=== PATIENT | female | born 1960 | race Caucasian/White ===

== ENCOUNTER 2021-06-06 12:28 | Inpatient (IN) | payer BC, OTHER ==
[~2021-06-06] VITALS: Ht 167.6 cm; Wt 57.6 kg
[2021-06-06 13:36] LABS: CLARITY URINE CLOUDY (CLEAR); COLOR URINE YELLOW (YELLOW); KETONES URINE NEGATIVE (NEGATIVE); LEUKOCYTE ESTERASE URINE NEGATIVE (NEGATIVE); NITRITE URINE NEGATIVE (NEGATIVE); OCCULT BLOOD URINE TRACE (NEGATIVE); PROTEIN URINE NEGATIVE (NEGATIVE); UROBILINOGEN URINE 0.2 E.U./dL (0.2-1.0)
[2021-06-06 14:03] LABS: CHLORIDE 102 mEq/L (98-107)
[2021-06-06 14:10] LABS: BASOPHILS % 0.6 % (0.0-2.0); EOSINOPHILS % 0.9 % (0.0-5.0); HEMATOCRIT. 29.3 % (36.0-48.0); HEMOGLOBIN. 10.2 g/dL (12.0-16.0); LYMPHOCYTES % 14.7 % (20.0-50.0); MEAN CORPUSCULAR HEMOGLOBIN 30.8 pg (28.0-32.0); MEAN CORPUSCULAR VOLUME 88.5 fL (81.0-99.0); MONOCYTES % 5.8 % (2.0-8.0); RED BLOOD CELL COUNT 3.32 mill/uL (4.2-5.4); RED CELL DISTRIBUTION WIDTH 12.9 % (11.6-14.6)
[2021-06-06 14:11] LABS: INR 1.4; PARTIAL THROMBOPLASTIN TIME 30.4 sec (23.4-31.0); PROTHROMBIN TIME 14.6 sec (9.6-11.0)
[2021-06-06 14:44] LABS: MEAN PLATELET VOLUME 8.6 fl (7.4-10.4)
[2021-06-06 21:48] VITALS: BP 128/72
[2021-06-06] MEDS: DEXT 5%/0.45% NACL 1000ML 1,000 ML IV SCH (22:57)
[2021-06-06] MEDS: MORPHINE SULFATE 2 MG/ML CPJ (NOT FOR IM USE) IV PRN (22:58)
[2021-06-06] MEDS: METHYLPREDNISOLONE SOD SUCC 125 MG/2 ML VIAL IV SCH (22:59)
[2021-06-06] MEDS: AMLODIPINE 10MG TABLET PO SCH (22:59)
[2021-06-06] MEDS: LANSOPRAZOLE 30MG DR CAPSULE NG SCH (23:22)
[2021-06-07] VITALS (9 sets, daily range): BP systolic 119–149; BP diastolic 58–80
[2021-06-07] MEDS ORDERED: PRED1TAB MT (01:27)
[2021-06-07] MEDS ORDERED: [UNRECOGNIZED DRUG - CODE] MT (01:27)
[2021-06-07] MEDS ORDERED: LANS30CA52 MT (01:27)
[2021-06-07] MEDS: SIMETHICONE 80MG TABLET CHEW PO PRN ×3 (05:01→23:47)
[2021-06-07] MEDS: METHYLPREDNISOLONE SOD SUCC 125 MG/2 ML VIAL IV SCH ×5 (05:55→23:51)
[2021-06-07] MEDS: LEVOTHYROXINE SODIUM 50MCG TABLET PO SCH (05:55)
[2021-06-07] MEDS: LANSOPRAZOLE 30MG DR CAPSULE NG SCH (05:55)
[2021-06-07 07:03] LABS: HEMATOCRIT. 30.4 % (36.0-48.0); HEMOGLOBIN. 10.5 g/dL (12.0-16.0); MEAN CORPUSCULAR HEMOGLOBIN 31.1 pg (28.0-32.0); MEAN CORPUSCULAR VOLUME 89.7 fL (81.0-99.0); MEAN PLATELET VOLUME 8.5 fl (7.4-10.4); RED BLOOD CELL COUNT 3.39 mill/uL (4.2-5.4); RED CELL DISTRIBUTION WIDTH 13.3 % (11.6-14.6)
[2021-06-07 07:11] LABS: INR 1.3; PARTIAL THROMBOPLASTIN TIME 31.4 sec (23.4-31.0)
[2021-06-07 07:21] LABS: CHLORIDE 102 mEq/L (98-107)
[2021-06-07 07:41] LABS: T4 FREE 0.96 ng/dL (0.76-1.46)
[2021-06-07 08:03] LABS: PLATELET 34 x1000/uL (130-400)
[2021-06-07] MEDS: DEXT 5%/0.45% NACL 1000ML 1,000 ML IV SCH ×2 (08:55→18:52)
[2021-06-07] MEDS ORDERED: DICYCLOMINE HCL 10MG CAPSULE PO SCH (09:00)
[2021-06-07] MEDS: MORPHINE SULFATE 2 MG/ML CPJ (NOT FOR IM USE) IV PRN (12:27)
[2021-06-07] MEDS: DICYCLOMINE HCL 20MG TABLET PO SCH ×2 (14:54→21:24)
[2021-06-07] MEDS: [UNRECOGNIZED DRUG - REMARK] PO SCH ×2 (14:54→21:24)
[2021-06-07] MEDS ORDERED: CYCLOBENZAPRINE 10MG TABLET PO SCH (15:00)
[2021-06-07] MEDS: ALPRAZOLAM 0.5 MG TABLET PO PRN (16:18)
[2021-06-07] MEDS: AMLODIPINE 10MG TABLET PO SCH (17:51)
[2021-06-07] MEDS ORDERED: METHOTREXATE SODIUM 2 . 5MG TABLET PO SCH (18:30)
[2021-06-07 18:47] LABS: PLATELET ESTIMATE MARKEDLY DECREASED
[2021-06-07] MEDS: CYCLOBENZAPRINE 10MG TABLET PO SCH (20:14)
[2021-06-07] MEDS: FOLIC ACID 1MG TABLET PO SCH (20:15)
[2021-06-07] MEDS ORDERED: LACTULOSE 20G/30ML UDC PO NR (21:45)
[2021-06-07] MEDS: METHOTREXATE SODIUM 2 . 5MG TABLET PO SCH (21:53)
[2021-06-07] MEDS ORDERED: ALPRAZOLAM 0.5 MG TABLET PO NR (23:00)
[2021-06-08] VITALS: BP 135/68
[2021-06-08] MEDS ORDERED: LACTULOSE 20G/30ML UDC PO SCH (00:45)
[2021-06-08] MEDS: ALPRAZOLAM 0.5 MG TABLET PO PRN ×2 (00:54→22:45)
[2021-06-08] MEDS: DEXT 5%/0.45% NACL 1000ML 1,000 ML IV SCH ×3 (02:00→22:46)
[2021-06-08] MEDS: MORPHINE SULFATE 2 MG/ML CPJ (NOT FOR IM USE) IV PRN ×2 (02:06→11:26)
[2021-06-08] MEDS: METHOTREXATE SODIUM 2 . 5MG TABLET PO SCH ×2 (06:02→13:20)
[2021-06-08] MEDS: DICYCLOMINE HCL 20MG TABLET PO SCH ×2 (06:02→13:18)
[2021-06-08] MEDS: METHYLPREDNISOLONE SOD SUCC 125 MG/2 ML VIAL IV SCH ×3 (06:02→17:41)
[2021-06-08] MEDS: LANSOPRAZOLE 30MG DR CAPSULE NG SCH (06:04)
[2021-06-08] MEDS: LEVOTHYROXINE SODIUM 50MCG TABLET PO SCH (06:05)
[2021-06-08 06:52] LABS: CHLORIDE 103 mEq/L (98-107)
[2021-06-08 07:00] LABS: CREATINE KINASE 559 IU/L (26-192); HEMATOCRIT. 26.5 % (36.0-48.0); HEMOGLOBIN. 9.2 g/dL (12.0-16.0); MEAN CORPUSCULAR VOLUME 89.5 fL (81.0-99.0); RED BLOOD CELL COUNT 2.96 mill/uL (4.2-5.4); RED CELL DISTRIBUTION WIDTH 13.2 % (11.6-14.6)
[2021-06-08 07:02] LABS: T4 FREE 0.98 ng/dL (0.76-1.46)
[2021-06-08 08:00] VITALS: BP 151/76
[2021-06-08 08:24] LABS: VITAMIN B12 SERUM > 2000.0 pg/mL (211-911)
[2021-06-08] MEDS: FOLIC ACID 1MG TABLET PO SCH (09:00)
[2021-06-08] MEDS: [UNRECOGNIZED DRUG - REMARK] PO SCH ×3 (09:00→17:41)
[2021-06-08 12:00] VITALS: BP 147/73
[2021-06-08] MEDS ORDERED: POLYETHYLENE GLYCOL-ELECTROLYTE 4000ML PO SCH (12:00)
[2021-06-08] MEDS ORDERED: DIATR MEGLU/DIATRIZOATE SOLN 30ML PO SCH (12:30)
[2021-06-08] MEDS ORDERED: IOHEXOL-300 100 ML BOTTLE ONE (13:08)
[2021-06-08 13:12] LABS: PLATELET 20 x1000/uL (130-400)
[2021-06-08 15:06] LABS: PLATELET 47 x1000/uL (130-400); PLATELET ESTIMATE MARKEDLY DECREASED
[2021-06-08] MEDS ORDERED: NA PHOS,M-B/NA PHOS,DI-BA ENEMA 118ML PR PRN (15:30)
[2021-06-08 16:00] VITALS: BP 136/86
[2021-06-08] MEDS: AMLODIPINE 10MG TABLET PO SCH (17:41)
[2021-06-08] MEDS: PILOCARPINE HCL 5MG TABLET PO SCH ×2 (18:53→21:22)
[2021-06-08 20:00] VITALS: BP 138/78
[2021-06-08] MEDS: LACTULOSE 20G/30ML UDC PO SCH (21:21)
[2021-06-08] MEDS: CYCLOBENZAPRINE 10MG TABLET PO SCH (21:22)
[2021-06-09 00:42] VITALS: BP 137/73
[2021-06-09] MEDS: DICYCLOMINE HCL 20MG TABLET PO SCH ×5 (00:56→23:51)
[2021-06-09] MEDS: METHYLPREDNISOLONE SOD SUCC 125 MG/2 ML VIAL IV SCH ×5 (00:56→23:51)
[2021-06-09 04:00] VITALS: BP 147/83
[2021-06-09] MEDS: PILOCARPINE HCL 5MG TABLET PO SCH ×3 (06:07→21:17)
[2021-06-09] MEDS: DEXT 5%/0.45% NACL 1000ML 1,000 ML IV SCH ×3 (06:07→23:55)
[2021-06-09] MEDS: LANSOPRAZOLE 30MG DR CAPSULE NG SCH (06:07)
[2021-06-09] MEDS: LEVOTHYROXINE SODIUM 50MCG TABLET PO SCH (06:08)
[2021-06-09 06:27] LABS: CHLORIDE 98 mEq/L (98-107)
[2021-06-09 06:53] LABS: HEMATOCRIT. 22.6 % (36.0-48.0); HEMOGLOBIN. 7.8 g/dL (12.0-16.0); MEAN CORPUSCULAR HEMOGLOBIN 30.4 pg (28.0-32.0); MEAN CORPUSCULAR VOLUME 87.7 fL (81.0-99.0); MEAN PLATELET VOLUME 8.3 fl (7.4-10.4); RED BLOOD CELL COUNT 2.57 mill/uL (4.2-5.4); RED CELL DISTRIBUTION WIDTH 13.1 % (11.6-14.6)
[2021-06-09 08:00] VITALS: BP 141/84
[2021-06-09] MEDS: FOLIC ACID 1MG TABLET PO SCH (09:42)
[2021-06-09] MEDS: [UNRECOGNIZED DRUG - REMARK] PO SCH ×3 (09:42→17:16)
[2021-06-09 12:00] VITALS: BP 141/80
[2021-06-09] MEDS ORDERED: MAGNESIUM HYDROXIDE 400MG/5ML 30ML UDC PO PRN (12:00)
[2021-06-09] MEDS ORDERED: POLYETHYLENE GLYCOL 3350 (17GM) 1 DOSE PACK PO PRN (12:00)
[2021-06-09] MEDS ORDERED: LACTULOSE 20G/30ML UDC PO PRN (12:00)
[2021-06-09 12:02] LABS: PLATELET ESTIMATE MARKEDLY DECREASED
[2021-06-09 12:03] LABS: PLATELET 24 x1000/uL (130-400)
[2021-06-09] MEDS: LORAZEPAM 2MG/ML CPJ IV PRN ×2 (12:42→22:36)
[2021-06-09 13:11] LABS: ANA CENTROMERE PATTERN >1:1280 (.); ANA IFA Positive (.); ATYPICAL P-ANCA <1:20 titer (Neg:<1:20); CYTOPLASMIC C-ANCA <1:20 titer (Neg:<1:20); PERINUCLEAR P-ANCA <1:20 titer (Neg:<1:20)
[2021-06-09] MEDS ORDERED: NA PHOS,M-B/NA PHOS,DI-BA ENEMA 118ML PR SCH (13:15)
[2021-06-09 16:00] VITALS: BP 148/83
[2021-06-09] MEDS: AMLODIPINE 2.5MG TABLET PO SCH (17:13)
[2021-06-09] MEDS ORDERED: LACTULOSE 300 ML in WATER FOR IRRIGATION,STERILE 700 ML IR SCH (18:30)
[2021-06-09 19:06] LABS: HLA CLASS 1 ANTIBODY Negative (Negative); IIb/IIIa ANTIBODY Negative (Negative); Ia/IIa ANTIBODY Negative (Negative); Ib/IX ANTIBODY Negative (Negative)
[2021-06-09 20:00] VITALS: BP 136/73
[2021-06-09] MEDS: CYCLOBENZAPRINE 10MG TABLET PO SCH (21:17)
[2021-06-09] MEDS: LACTULOSE 20G/30ML UDC PO SCH (21:17)
[2021-06-10] VITALS: BP 135/81
[2021-06-10 04:00] VITALS: BP 135/85
[2021-06-10] MEDS: PILOCARPINE HCL 5MG TABLET PO SCH ×3 (06:36→21:09)
[2021-06-10] MEDS: LANSOPRAZOLE 30MG DR CAPSULE NG SCH (06:36)
[2021-06-10] MEDS: LEVOTHYROXINE SODIUM 50MCG TABLET PO SCH (06:36)
[2021-06-10] MEDS: DICYCLOMINE HCL 20MG TABLET PO SCH ×4 (06:37→23:07)
[2021-06-10] MEDS: METHYLPREDNISOLONE SOD SUCC 125 MG/2 ML VIAL IV SCH ×4 (06:38→23:07)
[2021-06-10 08:00] VITALS: BP 135/85
[2021-06-10] MEDS: FOLIC ACID 1MG TABLET PO SCH (09:11)
[2021-06-10] MEDS: [UNRECOGNIZED DRUG - REMARK] PO SCH ×3 (09:12→18:12)
[2021-06-10] MEDS: DEXT 5%/0.45% NACL 1000ML 1,000 ML IV SCH ×3 (10:18→23:07)
[2021-06-10] MEDS: LACTULOSE 300 ML in WATER FOR IRRIGATION,STERILE 700 ML PR SCH (10:18)
[2021-06-10 11:33] LABS: CHLORIDE 95 mEq/L (98-107); HEMATOCRIT. 25.3 % (36.0-48.0); HEMOGLOBIN. 8.8 g/dL (12.0-16.0); MEAN CORPUSCULAR HEMOGLOBIN 30.7 pg (28.0-32.0); MEAN CORPUSCULAR VOLUME 88.9 fL (81.0-99.0); MEAN PLATELET VOLUME 8.4 fl (7.4-10.4); RED BLOOD CELL COUNT 2.85 mill/uL (4.2-5.4); RED CELL DISTRIBUTION WIDTH 13.1 % (11.6-14.6)
[2021-06-10 11:44] LABS: TOTAL IRON BINDING CAPACITY 433 ug/dL (250-450)
[2021-06-10 11:56] LABS: PLATELET 19 x1000/uL (130-400)
[2021-06-10 12:51] LABS: NUCLEATED RED BLOOD CELLS 2 /100 WBC
[2021-06-10 12:52] LABS: PLATELET ESTIMATE MARKEDLY DECREASED
[2021-06-10 14:08] LABS: ANTI-MYELOPEROXIDASE AB < 9.0 U/mL (0.0-9.0); ANTI-PROTEINASE 3 ABS < 3.5 U/mL (0.0-3.5)
[2021-06-10 16:00] VITALS: BP 130/82
[2021-06-10] MEDS: AMLODIPINE 2.5MG TABLET PO SCH (18:10)
[2021-06-10 20:00] VITALS: BP 141/93
[2021-06-10] MEDS: LORAZEPAM 2MG/ML CPJ IV PRN (21:09)
[2021-06-10] MEDS: CYCLOBENZAPRINE 10MG TABLET PO SCH (21:09)
[2021-06-10] MEDS: LACTULOSE 20G/30ML UDC PO SCH (21:09)
[2021-06-10] MEDS ORDERED: NALOXONE HCL 0.4MG/ML VIAL IV PRN (21:45)
[2021-06-11] VITALS (15 sets, daily range): BP systolic 122–158; BP diastolic 66–89
[2021-06-11] MEDS: DICYCLOMINE HCL 20MG TABLET PO SCH ×4 (05:50→23:03)
[2021-06-11] MEDS: LANSOPRAZOLE 30MG DR CAPSULE NG SCH (05:50)
[2021-06-11] MEDS: PILOCARPINE HCL 5MG TABLET PO SCH ×3 (05:50→21:06)
[2021-06-11] MEDS: METHYLPREDNISOLONE SOD SUCC 125 MG/2 ML VIAL IV SCH ×4 (05:50→23:03)
[2021-06-11] MEDS: LEVOTHYROXINE SODIUM 50MCG TABLET PO SCH (05:50)
[2021-06-11 06:32] LABS: BASOPHILS % 0.1 % (0.0-2.0); EOSINOPHILS % 0.4 % (0.0-5.0); HEMOGLOBIN. 7.3 g/dL (12.0-16.0); LYMPHOCYTES % 21.8 % (20.0-50.0); MEAN CORPUSCULAR HEMOGLOBIN 30.9 pg (28.0-32.0); MEAN CORPUSCULAR VOLUME 87.7 fL (81.0-99.0); MEAN PLATELET VOLUME 8.3 fl (7.4-10.4); MONOCYTES % 4.5 % (2.0-8.0); NEUTROPHILS % 73.2 % (40.0-76.0); RED BLOOD CELL COUNT 2.36 mill/uL (4.2-5.4); RED CELL DISTRIBUTION WIDTH 13.1 % (11.6-14.6)
[2021-06-11 06:34] LABS: CHLORIDE 99 mEq/L (98-107)
[2021-06-11 06:47] LABS: HAPTOGLOBIN 89 mg/dL (30-200)
[2021-06-11] MEDS: DEXT 5%/0.45% NACL 1000ML 1,000 ML IV SCH ×3 (07:26→23:03)
[2021-06-11 07:45] LABS: HEMATOCRIT. 20.7 % (36.0-48.0); PLATELET 13 x1000/uL (130-400)
[2021-06-11] MEDS: FOLIC ACID 1MG TABLET PO SCH (08:54)
[2021-06-11] MEDS: [UNRECOGNIZED DRUG - REMARK] PO SCH ×3 (08:55→19:11)
[2021-06-11] MEDS: LACTULOSE 300 ML in WATER FOR IRRIGATION,STERILE 700 ML PR SCH (09:00)
[2021-06-11] MEDS: AMLODIPINE 2.5MG TABLET PO SCH (16:26)
[2021-06-11] MEDS: LACTULOSE 20G/30ML UDC PO SCH (21:06)
[2021-06-11] MEDS: CYCLOBENZAPRINE 10MG TABLET PO SCH (21:06)
[2021-06-11] MEDS: LORAZEPAM 2MG/ML CPJ IV PRN (23:03)
[2021-06-11 23:24] LABS: HEMATOCRIT 25.1 % (36.0-48.0)
[2021-06-12] VITALS: BP 141/82
[2021-06-12 04:00] VITALS: BP 119/77
[2021-06-12 05:51] LABS: HEMATOCRIT. 26.7 % (36.0-48.0); HEMOGLOBIN. 9.3 g/dL (12.0-16.0); MEAN CORPUSCULAR HEMOGLOBIN 30.4 pg (28.0-32.0); MEAN CORPUSCULAR VOLUME 87.6 fL (81.0-99.0); MEAN PLATELET VOLUME 7.9 fl (7.4-10.4); RED BLOOD CELL COUNT 3.05 mill/uL (4.2-5.4); RED CELL DISTRIBUTION WIDTH 13.3 % (11.6-14.6)
[2021-06-12 06:12] LABS: CHLORIDE 99 mEq/L (98-107)
[2021-06-12 06:31] LABS: PLATELET 17 x1000/uL (130-400)
[2021-06-12] MEDS: METHYLPREDNISOLONE SOD SUCC 125 MG/2 ML VIAL IV SCH ×4 (06:38→23:00)
[2021-06-12] MEDS: LEVOTHYROXINE SODIUM 50MCG TABLET PO SCH (06:39)
[2021-06-12] MEDS: DICYCLOMINE HCL 20MG TABLET PO SCH ×4 (06:39→23:00)
[2021-06-12] MEDS: LANSOPRAZOLE 30MG DR CAPSULE NG SCH (06:39)
[2021-06-12] MEDS: PILOCARPINE HCL 5MG TABLET PO SCH ×3 (06:39→20:32)
[2021-06-12 07:20] LABS: INR 1.2
[2021-06-12 08:00] VITALS: BP 108/76
[2021-06-12 09:19] LABS: NUCLEATED RED BLOOD CELLS 3 /100 WBC; PLATELET ESTIMATE MARKEDLY DECREASED
[2021-06-12] MEDS: LACTULOSE 300 ML in WATER FOR IRRIGATION,STERILE 700 ML PR SCH (09:23)
[2021-06-12] MEDS: [UNRECOGNIZED DRUG - REMARK] PO SCH ×3 (09:23→17:00)
[2021-06-12] MEDS: FOLIC ACID 1MG TABLET PO SCH (09:23)
[2021-06-12] MEDS: DEXT 5%/0.45% NACL 1000ML 1,000 ML IV SCH ×3 (09:26→23:01)
[2021-06-12 16:00] VITALS: BP 126/78
[2021-06-12] MEDS: AMLODIPINE 2.5MG TABLET PO SCH (18:19)
[2021-06-12 20:00] VITALS: BP 128/80
[2021-06-12] MEDS: CYCLOBENZAPRINE 10MG TABLET PO SCH (20:32)
[2021-06-12] MEDS: LACTULOSE 20G/30ML UDC PO SCH (20:32)
[2021-06-12] MEDS: LORAZEPAM 2MG/ML CPJ IV PRN (23:00)
[2021-06-13] VITALS: BP 148/83
[2021-06-13 04:00] VITALS: BP 119/78
[2021-06-13] MEDS: LEVOTHYROXINE SODIUM 50MCG TABLET PO SCH (06:10)
[2021-06-13] MEDS: DICYCLOMINE HCL 20MG TABLET PO SCH ×4 (06:10→23:23)
[2021-06-13] MEDS: METHYLPREDNISOLONE SOD SUCC 125 MG/2 ML VIAL IV SCH ×4 (06:10→23:23)
[2021-06-13] MEDS: PILOCARPINE HCL 5MG TABLET PO SCH ×3 (06:10→21:09)
[2021-06-13] MEDS: LANSOPRAZOLE 30MG DR CAPSULE NG SCH (06:11)
[2021-06-13 06:45] LABS: HEMATOCRIT. 25.2 % (36.0-48.0); HEMOGLOBIN. 8.7 g/dL (12.0-16.0); MEAN CORPUSCULAR HEMOGLOBIN 30.2 pg (28.0-32.0); MEAN CORPUSCULAR VOLUME 86.9 fL (81.0-99.0); RED CELL DISTRIBUTION WIDTH 13.1 % (11.6-14.6)
[2021-06-13 06:51] LABS: CHLORIDE 99 mEq/L (98-107)
[2021-06-13 06:52] LABS: PLATELET 12 x1000/uL (130-400)
[2021-06-13 08:00] VITALS: BP 141/82
[2021-06-13] MEDS: LACTULOSE 300 ML in WATER FOR IRRIGATION,STERILE 700 ML PR SCH (09:24)
[2021-06-13] MEDS: [UNRECOGNIZED DRUG - REMARK] PO SCH ×3 (09:34→17:08)
[2021-06-13] MEDS: FOLIC ACID 1MG TABLET PO SCH (09:34)
[2021-06-13] MEDS: DEXT 5%/0.45% NACL 1000ML 1,000 ML IV SCH ×3 (09:34→23:23)
[2021-06-13 12:00] VITALS: BP 124/78
[2021-06-13] MEDS ORDERED: IMMUNE GLOBULIN GAMMA IV SCH (15:30)
[2021-06-13 16:00] VITALS: BP 128/85
[2021-06-13] MEDS: AMLODIPINE 2.5MG TABLET PO SCH (17:08)
[2021-06-13 18:33] LABS: PLATELET ESTIMATE MARKEDLY DECREASED
[2021-06-13 20:00] VITALS: BP 138/80
[2021-06-13] MEDS: LACTULOSE 20G/30ML UDC PO SCH (21:09)
[2021-06-13] MEDS: CYCLOBENZAPRINE 10MG TABLET PO SCH (21:09)
[2021-06-13] MEDS: LORAZEPAM 2MG/ML CPJ IV PRN (23:23)
[2021-06-14] VITALS (7 sets, daily range): BP systolic 120–144; BP diastolic 77–89
[2021-06-14 05:50] LABS: CHLORIDE 99 mEq/L (98-107)
[2021-06-14 05:55] LABS: HEMATOCRIT. 22.6 % (36.0-48.0); HEMOGLOBIN. 7.8 g/dL (12.0-16.0); MEAN CORPUSCULAR HEMOGLOBIN 30.3 pg (28.0-32.0); MEAN CORPUSCULAR VOLUME 87.6 fL (81.0-99.0); MEAN PLATELET VOLUME 8.6 fl (7.4-10.4); RED BLOOD CELL COUNT 2.58 mill/uL (4.2-5.4); RED CELL DISTRIBUTION WIDTH 13.3 % (11.6-14.6)
[2021-06-14 06:09] LABS: GAMMA GLUTAMYL TRANSPEPTIDASE 66 IU/L (7-32)
[2021-06-14] MEDS: LANSOPRAZOLE 30MG DR CAPSULE NG SCH (06:20)
[2021-06-14] MEDS: PILOCARPINE HCL 5MG TABLET PO SCH ×3 (06:20→21:28)
[2021-06-14] MEDS: METHYLPREDNISOLONE SOD SUCC 125 MG/2 ML VIAL IV SCH ×3 (06:20→17:45)
[2021-06-14] MEDS: DICYCLOMINE HCL 20MG TABLET PO SCH ×3 (06:21→17:45)
[2021-06-14] MEDS: LEVOTHYROXINE SODIUM 50MCG TABLET PO SCH (06:21)
[2021-06-14 07:56] LABS: PLATELET 8 x1000/uL (130-400)
[2021-06-14] MEDS: DEXT 5%/0.45% NACL 1000ML 1,000 ML IV SCH ×2 (09:57→17:47)
[2021-06-14] MEDS: LACTULOSE 300 ML in WATER FOR IRRIGATION,STERILE 700 ML PR SCH (09:57)
[2021-06-14] MEDS: [UNRECOGNIZED DRUG - REMARK] PO SCH ×3 (09:57→17:46)
[2021-06-14] MEDS: FOLIC ACID 1MG TABLET PO SCH (09:57)
[2021-06-14 17:01] LABS: INR 1.1; PARTIAL THROMBOPLASTIN TIME 25.7 sec (23.4-31.0); PROTHROMBIN TIME 11.9 sec (9.6-11.0)
[2021-06-14 17:10] LABS: CREATINE KINASE 758 IU/L (26-192)
[2021-06-14] MEDS: AMLODIPINE 2.5MG TABLET PO SCH (17:45)
[2021-06-14 18:10] LABS: HEPATITIS B SURFACE ANTIGEN NEGATIVE
[2021-06-14] MEDS: LACTULOSE 20G/30ML UDC PO SCH (21:00)
[2021-06-14] MEDS: CYCLOBENZAPRINE 10MG TABLET PO SCH (21:28)
[2021-06-14 21:57] LABS: NUCLEATED RED BLOOD CELLS 6 /100 WBC; PLATELET ESTIMATE MARKEDLY DECREASED
[2021-06-14] MEDS: LORAZEPAM 2MG/ML CPJ IV PRN (22:02)
[2021-06-15] VITALS: BP 122/76
[2021-06-15] MEDS: METHYLPREDNISOLONE SOD SUCC 125 MG/2 ML VIAL IV SCH ×5 (00:02→23:51)
[2021-06-15] MEDS: DICYCLOMINE HCL 20MG TABLET PO SCH ×5 (00:02→23:51)
[2021-06-15] MEDS: DEXT 5%/0.45% NACL 1000ML 1,000 ML IV SCH ×4 (00:07→22:37)
[2021-06-15 02:47] LABS: HEMATOCRIT. 24.7 % (36.0-48.0); HEMOGLOBIN. 8.5 g/dL (12.0-16.0); MEAN CORPUSCULAR HEMOGLOBIN 30.3 pg (28.0-32.0); MEAN PLATELET VOLUME 7.4 fl (7.4-10.4); RED CELL DISTRIBUTION WIDTH 13.1 % (11.6-14.6)
[2021-06-15 02:54] LABS: CHLORIDE 99 mEq/L (98-107)
[2021-06-15 02:58] LABS: PLATELET 16 x1000/uL (130-400)
[2021-06-15 04:00] VITALS: BP 130/77
[2021-06-15] MEDS: LANSOPRAZOLE 30MG DR CAPSULE NG SCH (06:24)
[2021-06-15] MEDS: PILOCARPINE HCL 5MG TABLET PO SCH ×3 (06:24→21:10)
[2021-06-15] MEDS: LEVOTHYROXINE SODIUM 50MCG TABLET PO SCH (06:24)
[2021-06-15 08:00] VITALS: BP 112/77
[2021-06-15] MEDS: LACTULOSE 300 ML in WATER FOR IRRIGATION,STERILE 700 ML PR SCH (08:45)
[2021-06-15] MEDS: FOLIC ACID 1MG TABLET PO SCH (08:59)
[2021-06-15] MEDS: [UNRECOGNIZED DRUG - REMARK] PO SCH ×3 (09:00→18:37)
[2021-06-15 12:00] VITALS: BP 157/80
[2021-06-15] MEDS ORDERED: PROMACTA 50 MG PO SCH (13:00)
[2021-06-15 16:00] VITALS: BP 128/80
[2021-06-15 16:27] LABS: HEMATOCRIT. 22.5 % (36.0-48.0); HEMOGLOBIN. 7.7 g/dL (12.0-16.0); MEAN CORPUSCULAR HEMOGLOBIN 30.5 pg (28.0-32.0); MEAN CORPUSCULAR VOLUME 89.5 fL (81.0-99.0); RED BLOOD CELL COUNT 2.52 mill/uL (4.2-5.4); RED CELL DISTRIBUTION WIDTH 13.6 % (11.6-14.6)
[2021-06-15 16:47] LABS: PLATELET 10 x1000/uL (130-400)
[2021-06-15 17:16] LABS: NUCLEATED RED BLOOD CELLS 11 /100 WBC; PLATELET ESTIMATE MARKEDLY DECREASED
[2021-06-15 17:50] LABS: NUCLEATED RED BLOOD CELLS 4 /100 WBC; PLATELET ESTIMATE MARKEDLY DECREASED
[2021-06-15] MEDS: AMLODIPINE 2.5MG TABLET PO SCH (18:37)
[2021-06-15] MEDS ORDERED: PROMACTA PO SCH (19:00)
[2021-06-15 20:00] VITALS: BP 136/77
[2021-06-15] MEDS: CYCLOBENZAPRINE 10MG TABLET PO SCH (21:10)
[2021-06-15] MEDS: LACTULOSE 20G/30ML UDC PO SCH (21:10)
[2021-06-16] VITALS (9 sets, daily range): BP systolic 111–137; BP diastolic 66–82
[2021-06-16] MEDS: PILOCARPINE HCL 5MG TABLET PO SCH ×4 (05:38→21:30)
[2021-06-16] MEDS: DICYCLOMINE HCL 20MG TABLET PO SCH ×4 (05:38→23:42)
[2021-06-16] MEDS: LANSOPRAZOLE 30MG DR CAPSULE NG SCH (05:43)
[2021-06-16] MEDS: LEVOTHYROXINE SODIUM 50MCG TABLET PO SCH (05:43)
[2021-06-16] MEDS: PROMACTA PO SCH (06:18)
[2021-06-16] MEDS: METHYLPREDNISOLONE SOD SUCC 125 MG/2 ML VIAL IV SCH ×3 (06:37→16:39)
[2021-06-16] MEDS: FOLIC ACID 1MG TABLET PO SCH (08:32)
[2021-06-16] MEDS: [UNRECOGNIZED DRUG - REMARK] PO SCH ×3 (08:34→16:42)
[2021-06-16] MEDS: LACTULOSE 300 ML in WATER FOR IRRIGATION,STERILE 700 ML PR SCH (09:00)
[2021-06-16 10:30] LABS: CHLORIDE 98 mEq/L (98-107)
[2021-06-16 10:33] LABS: HEMATOCRIT. 22.1 % (36.0-48.0); HEMOGLOBIN. 7.7 g/dL (12.0-16.0); MEAN CORPUSCULAR HEMOGLOBIN 30.4 pg (28.0-32.0); MEAN CORPUSCULAR VOLUME 87.7 fL (81.0-99.0); MEAN PLATELET VOLUME 8.5 fl (7.4-10.4); RED BLOOD CELL COUNT 2.52 mill/uL (4.2-5.4); RED CELL DISTRIBUTION WIDTH 13.3 % (11.6-14.6)
[2021-06-16 10:39] LABS: PLATELET 31 x1000/uL (130-400)
[2021-06-16] MEDS: DEXT 5%/0.45% NACL 1000ML 1,000 ML IV SCH ×3 (14:07→23:43)
[2021-06-16] MEDS: AMLODIPINE 2.5MG TABLET PO SCH (16:43)
[2021-06-16 18:08] LABS: NUCLEATED RED BLOOD CELLS 6 /100 WBC
[2021-06-16 18:09] LABS: PLATELET ESTIMATE MARKEDLY DECREASED
[2021-06-16] MEDS: LACTULOSE 20G/30ML UDC PO SCH (20:19)
[2021-06-16] MEDS: CYCLOBENZAPRINE 10MG TABLET PO SCH (20:19)
[2021-06-16] MEDS: METHYLPREDNISOLONE SOD SUCC 40 MG/ML VIAL IV SCH (23:42)
[2021-06-17] VITALS: BP 123/77
[2021-06-17 04:00] VITALS: BP 128/75
[2021-06-17] MEDS: LANSOPRAZOLE 30MG DR CAPSULE NG SCH (06:00)
[2021-06-17] MEDS: PILOCARPINE HCL 5MG TABLET PO SCH ×3 (06:00→21:35)
[2021-06-17] MEDS: LEVOTHYROXINE SODIUM 50MCG TABLET PO SCH (06:00)
[2021-06-17] MEDS: PROMACTA PO SCH (06:01)
[2021-06-17] MEDS: DICYCLOMINE HCL 20MG TABLET PO SCH ×3 (06:01→19:01)
[2021-06-17] MEDS: METHYLPREDNISOLONE SOD SUCC 40 MG/ML VIAL IV SCH ×3 (06:02→19:01)
[2021-06-17 08:00] VITALS: BP 122/67
[2021-06-17] MEDS: LACTULOSE 300 ML in WATER FOR IRRIGATION,STERILE 700 ML PR SCH (09:00)
[2021-06-17] MEDS: [UNRECOGNIZED DRUG - REMARK] PO SCH ×3 (09:15→17:54)
[2021-06-17] MEDS: DEXT 5%/0.45% NACL 1000ML 1,000 ML IV SCH ×3 (09:15→23:12)
[2021-06-17] MEDS: FOLIC ACID 1MG TABLET PO SCH (09:15)
[2021-06-17 10:45] LABS: HEMOGLOBIN. 7.2 g/dL (12.0-16.0); MEAN CORPUSCULAR HEMOGLOBIN 31.3 pg (28.0-32.0); MEAN CORPUSCULAR VOLUME 87.5 fL (81.0-99.0); MEAN PLATELET VOLUME 8.2 fl (7.4-10.4); RED BLOOD CELL COUNT 2.29 mill/uL (4.2-5.4); RED CELL DISTRIBUTION WIDTH 13.6 % (11.6-14.6)
[2021-06-17 10:50] LABS: PLATELET 16 x1000/uL (130-400)
[2021-06-17 10:51] LABS: CHLORIDE 99 mEq/L (98-107)
[2021-06-17 12:00] VITALS: BP 113/75
[2021-06-17 13:06] LABS: ALDOLASE 14.9 U/L (3.3-10.3); MITOCHONDRIAL M2 AB <20.0 Units (0.0-20.0)
[2021-06-17 16:00] VITALS: BP 105/74
[2021-06-17] MEDS: AMLODIPINE 2.5MG TABLET PO SCH (17:55)
[2021-06-17 20:00] VITALS: BP 111/75
[2021-06-17] MEDS: LACTULOSE 20G/30ML UDC PO SCH (21:00)
[2021-06-17] MEDS ORDERED: METHOTREXATE SODIUM 2 . 5MG TABLET PO SCH (21:00)
[2021-06-17] MEDS: ASCORBIC ACID 500 MG TABLET PO SCH (21:35)
[2021-06-17] MEDS: CYCLOBENZAPRINE 10MG TABLET PO SCH (21:35)
[2021-06-17 22:06] LABS: NUCLEATED RED BLOOD CELLS 4 /100 WBC; PLATELET ESTIMATE MARKEDLY DECREASED
[2021-06-18] VITALS (17 sets, daily range): BP systolic 115–148; BP diastolic 74–96
[2021-06-18] MEDS: NYSTATIN 100,000 UNITS/ML 5ML UDC SSW SCH ×5 (00:08→23:32)
[2021-06-18] MEDS: DICYCLOMINE HCL 20MG TABLET PO SCH ×5 (00:08→23:33)
[2021-06-18] MEDS: METHYLPREDNISOLONE SOD SUCC 40 MG/ML VIAL IV SCH ×5 (00:09→23:33)
[2021-06-18] MEDS ORDERED: METHOTREXATE SODIUM 2 . 5MG TABLET PO SCH ×4 (06:00→22:00)
[2021-06-18] MEDS: PILOCARPINE HCL 5MG TABLET PO SCH ×3 (06:14→22:26)
[2021-06-18] MEDS: FERROUS SULFATE 325MG TABLET PO SCH ×3 (06:15→18:06)
[2021-06-18] MEDS: LANSOPRAZOLE 30MG DR CAPSULE NG SCH (06:15)
[2021-06-18] MEDS: LEVOTHYROXINE SODIUM 50MCG TABLET PO SCH (06:15)
[2021-06-18] MEDS: PROMACTA PO SCH (06:16)
[2021-06-18 07:13] LABS: HEMATOCRIT. 23.4 % (36.0-48.0); HEMOGLOBIN. 8.3 g/dL (12.0-16.0); MEAN CORPUSCULAR HEMOGLOBIN 30.5 pg (28.0-32.0); MEAN CORPUSCULAR VOLUME 86.4 fL (81.0-99.0); MEAN PLATELET VOLUME 8.5 fl (7.4-10.4); RED BLOOD CELL COUNT 2.71 mill/uL (4.2-5.4); RED CELL DISTRIBUTION WIDTH 13.1 % (11.6-14.6)
[2021-06-18 07:36] LABS: CHLORIDE 101 mEq/L (98-107)
[2021-06-18] MEDS: LACTULOSE 300 ML in WATER FOR IRRIGATION,STERILE 700 ML PR SCH (09:00)
[2021-06-18] MEDS: [UNRECOGNIZED DRUG - REMARK] PO SCH ×3 (09:00→18:04)
[2021-06-18] MEDS: FOLIC ACID 1MG TABLET PO SCH (09:00)
[2021-06-18] MEDS: ASCORBIC ACID 500 MG TABLET PO SCH ×2 (09:00→22:27)
[2021-06-18] MEDS ORDERED: DEXTROSE 50% WATER 50ML SYRINGE IV PRN (10:45)
[2021-06-18] MEDS: BLOOD SUGAR DIAGNOSTIC STRIP TEST SCH ×2 (11:39→21:00)
[2021-06-18] MEDS: INSULIN REGULAR HUMAN (HIGH DOSE) 100 UNITS/ML 3ML VIAL IV SCH ×2 (12:38→22:28)
[2021-06-18] MEDS: LORAZEPAM 2MG/ML CPJ IV PRN ×2 (16:09→23:33)
[2021-06-18 17:44] LABS: NUCLEATED RED BLOOD CELLS 8 /100 WBC
[2021-06-18 17:45] LABS: PLATELET 12 x1000/uL (130-400); PLATELET ESTIMATE MARKEDLY DECREASED
[2021-06-18] MEDS: AMLODIPINE 2.5MG TABLET PO SCH (18:04)
[2021-06-18] MEDS: DEXT 5%/0.45% NACL 1000ML 1,000 ML IV SCH (18:07)
[2021-06-18] MEDS ORDERED: MORPHINE SULFATE 2 MG/ML CPJ (NOT FOR IM USE) IV PRN (21:00)
[2021-06-18] MEDS: LACTULOSE 20G/30ML UDC PO SCH (21:00)
[2021-06-18] MEDS: CYCLOBENZAPRINE 10MG TABLET PO SCH (22:30)
[2021-06-19] VITALS (9 sets, daily range): BP systolic 116–158; BP diastolic 73–88
[2021-06-19] MEDS: PILOCARPINE HCL 5MG TABLET PO SCH ×3 (05:48→21:13)
[2021-06-19] MEDS: LEVOTHYROXINE SODIUM 50MCG TABLET PO SCH (05:48)
[2021-06-19] MEDS: NYSTATIN 100,000 UNITS/ML 5ML UDC SSW SCH ×4 (05:48→23:31)
[2021-06-19] MEDS: LANSOPRAZOLE 30MG DR CAPSULE NG SCH (05:48)
[2021-06-19] MEDS: DICYCLOMINE HCL 20MG TABLET PO SCH ×4 (05:48→23:32)
[2021-06-19] MEDS: PROMACTA PO SCH (05:49)
[2021-06-19] MEDS: METHYLPREDNISOLONE SOD SUCC 40 MG/ML VIAL IV SCH ×3 (05:49→17:51)
[2021-06-19] MEDS: DEXT 5%/0.45% NACL 1000ML 1,000 ML IV SCH ×2 (05:51→12:54)
[2021-06-19 08:37] LABS: HEMATOCRIT. 23.2 % (36.0-48.0); HEMOGLOBIN. 8.1 g/dL (12.0-16.0); MEAN CORPUSCULAR HEMOGLOBIN 29.9 pg (28.0-32.0); MEAN CORPUSCULAR VOLUME 85.9 fL (81.0-99.0); MEAN PLATELET VOLUME 8.4 fl (7.4-10.4); RED CELL DISTRIBUTION WIDTH 13.3 % (11.6-14.6)
[2021-06-19 08:58] LABS: PROTHROMBIN TIME 10.7 sec (9.6-11.0)
[2021-06-19] MEDS ORDERED: NICOTINE 7MG PATCH TD SCH (09:00)
[2021-06-19] MEDS: LACTULOSE 300 ML in WATER FOR IRRIGATION,STERILE 700 ML PR SCH (09:00)
[2021-06-19] MEDS: ASCORBIC ACID 500 MG TABLET PO SCH ×2 (09:16→21:13)
[2021-06-19] MEDS: FOLIC ACID 1MG TABLET PO SCH (09:17)
[2021-06-19] MEDS: FERROUS SULFATE 325MG TABLET PO SCH ×3 (09:17→16:45)
[2021-06-19] MEDS: [UNRECOGNIZED DRUG - REMARK] PO SCH ×3 (09:22→16:45)
[2021-06-19] MEDS: INSULIN REGULAR HUMAN (HIGH DOSE) 100 UNITS/ML 3ML VIAL IV SCH ×2 (09:23→21:14)
[2021-06-19] MEDS: BLOOD SUGAR DIAGNOSTIC STRIP TEST SCH ×2 (09:24→21:20)
[2021-06-19 09:33] LABS: CHLORIDE 99 mEq/L (98-107)
[2021-06-19 09:53] LABS: PLATELET 13 x1000/uL (130-400)
[2021-06-19] MEDS ORDERED: LACTULOSE 300 ML in WATER FOR IRRIGATION,STERILE 700 ML PR PRN (11:30)
[2021-06-19 14:01] LABS: PLATELET ESTIMATE MARKEDLY DECREASED
[2021-06-19] MEDS: DOCUSATE SODIUM 100MG CAPSULE PO SCH (16:45)
[2021-06-19] MEDS: AMLODIPINE 2.5MG TABLET PO SCH (16:45)
[2021-06-19] MEDS: CYCLOBENZAPRINE 10MG TABLET PO SCH (21:13)
[2021-06-19] MEDS: METHYLPREDNISOLONE SOD IV SCH (22:48)
[2021-06-19] MEDS: DEXT 5% IV SCH (22:48)
[2021-06-19] MEDS: WATER IV SCH (22:48)
[2021-06-19] MEDS: LORAZEPAM 2MG/ML CPJ IV PRN (23:32)
[2021-06-20] VITALS: BP 122/76
[2021-06-20] MEDS ORDERED: METHYLPREDNISOLONE SOD SUCC 40 MG/ML VIAL IV SCH ×2
[2021-06-20 04:00] VITALS: BP 108/63
[2021-06-20] MEDS: PILOCARPINE HCL 5MG TABLET PO SCH ×3 (06:13→21:23)
[2021-06-20] MEDS: LEVOTHYROXINE SODIUM 50MCG TABLET PO SCH (06:13)
[2021-06-20] MEDS: NYSTATIN 100,000 UNITS/ML 5ML UDC SSW SCH ×3 (06:13→18:43)
[2021-06-20] MEDS: LANSOPRAZOLE 30MG DR CAPSULE NG SCH (06:13)
[2021-06-20] MEDS: DICYCLOMINE HCL 20MG TABLET PO SCH ×3 (06:14→18:43)
[2021-06-20] MEDS: PROMACTA PO SCH (06:14)
[2021-06-20] MEDS: DEXT 5% IV SCH ×3 (06:14→17:55)
[2021-06-20] MEDS: METHYLPREDNISOLONE SOD IV SCH ×3 (06:14→17:55)
[2021-06-20] MEDS: WATER IV SCH ×3 (06:14→17:55)
[2021-06-20 07:59] LABS: HEMATOCRIT. 21.8 % (36.0-48.0); HEMOGLOBIN. 7.6 g/dL (12.0-16.0); MEAN CORPUSCULAR VOLUME 86.1 fL (81.0-99.0); MEAN PLATELET VOLUME 8.7 fl (7.4-10.4); RED BLOOD CELL COUNT 2.53 mill/uL (4.2-5.4); RED CELL DISTRIBUTION WIDTH 13.5 % (11.6-14.6)
[2021-06-20 08:00] VITALS: BP 104/66
[2021-06-20 08:11] LABS: PLATELET 11 x1000/uL (130-400)
[2021-06-20] MEDS: BLOOD SUGAR DIAGNOSTIC STRIP TEST SCH ×2 (08:53→21:23)
[2021-06-20] MEDS: FOLIC ACID 1MG TABLET PO SCH (09:02)
[2021-06-20] MEDS: ASCORBIC ACID 500 MG TABLET PO SCH ×2 (09:03→21:23)
[2021-06-20] MEDS: [UNRECOGNIZED DRUG - REMARK] PO SCH ×3 (09:03→17:55)
[2021-06-20] MEDS: FERROUS SULFATE 325MG TABLET PO SCH ×3 (09:03→17:55)
[2021-06-20] MEDS: DOCUSATE SODIUM 100MG CAPSULE PO SCH ×2 (09:03→17:56)
[2021-06-20] MEDS: INSULIN REGULAR HUMAN (HIGH DOSE) 100 UNITS/ML 3ML VIAL IV SCH ×2 (09:06→21:41)
[2021-06-20 11:11] LABS: CHLORIDE 99 mEq/L (98-107)
[2021-06-20 15:46] LABS: NUCLEATED RED BLOOD CELLS 3 /100 WBC; PLATELET ESTIMATE MARKEDLY DECREASED
[2021-06-20 16:00] VITALS: BP 118/71
[2021-06-20] MEDS: AMLODIPINE 2.5MG TABLET PO SCH (17:55)
[2021-06-20 20:00] VITALS: BP 136/84
[2021-06-20] MEDS: FILGRASTIM-TBO 300 MCG/0.5 ML SYRINGE SQ SCH (21:22)
[2021-06-20] MEDS: CYCLOBENZAPRINE 10MG TABLET PO SCH (21:23)
[2021-06-21] VITALS (11 sets, daily range): BP systolic 105–125; BP diastolic 72–79
[2021-06-21] MEDS: WATER IV SCH ×4 (00:17→18:57)
[2021-06-21] MEDS: METHYLPREDNISOLONE SOD IV SCH ×4 (00:17→18:57)
[2021-06-21] MEDS: DEXT 5% IV SCH ×4 (00:17→18:57)
[2021-06-21] MEDS: NYSTATIN 100,000 UNITS/ML 5ML UDC SSW SCH ×4 (00:17→17:34)
[2021-06-21] MEDS: DICYCLOMINE HCL 20MG TABLET PO SCH ×4 (00:17→17:34)
[2021-06-21] MEDS: LANSOPRAZOLE 30MG DR CAPSULE NG SCH (06:01)
[2021-06-21] MEDS: LEVOTHYROXINE SODIUM 50MCG TABLET PO SCH (06:01)
[2021-06-21] MEDS: PILOCARPINE HCL 5MG TABLET PO SCH ×3 (06:01→21:35)
[2021-06-21] MEDS: PROMACTA PO SCH (06:01)
[2021-06-21] MEDS: FERROUS SULFATE 325MG TABLET PO SCH ×3 (06:16→17:34)
[2021-06-21 06:55] LABS: HEMATOCRIT. 21.7 % (36.0-48.0); HEMOGLOBIN. 7.6 g/dL (12.0-16.0); MEAN CORPUSCULAR HEMOGLOBIN 29.8 pg (28.0-32.0); MEAN CORPUSCULAR VOLUME 85.1 fL (81.0-99.0); MEAN PLATELET VOLUME 9.3 fl (7.4-10.4); RED BLOOD CELL COUNT 2.55 mill/uL (4.2-5.4); RED CELL DISTRIBUTION WIDTH 13.2 % (11.6-14.6)
[2021-06-21 07:04] LABS: PLATELET 8 x1000/uL (130-400)
[2021-06-21 07:23] LABS: CHLORIDE 98 mEq/L (98-107)
[2021-06-21] MEDS: BLOOD SUGAR DIAGNOSTIC STRIP TEST SCH ×2 (09:00→21:45)
[2021-06-21] MEDS: DOCUSATE SODIUM 100MG CAPSULE PO SCH ×2 (09:45→17:34)
[2021-06-21] MEDS: ASCORBIC ACID 500 MG TABLET PO SCH ×2 (09:45→21:35)
[2021-06-21] MEDS: FOLIC ACID 1MG TABLET PO SCH (09:45)
[2021-06-21] MEDS: [UNRECOGNIZED DRUG - REMARK] PO SCH ×3 (09:45→17:34)
[2021-06-21] MEDS: INSULIN REGULAR HUMAN (HIGH DOSE) 100 UNITS/ML 3ML VIAL IV SCH ×2 (09:46→21:42)
[2021-06-21 14:02] LABS: NUCLEATED RED BLOOD CELLS 14 /100 WBC; PLATELET ESTIMATE MARKEDLY DECREASED
[2021-06-21] MEDS: AMLODIPINE 2.5MG TABLET PO SCH (17:00)
[2021-06-21] MEDS: CYCLOBENZAPRINE 10MG TABLET PO SCH (21:35)
[2021-06-21] MEDS: FILGRASTIM-TBO 300 MCG/0.5 ML SYRINGE SQ SCH (21:45)
[2021-06-22] VITALS (15 sets, daily range): BP systolic 113–135; BP diastolic 72–78
[2021-06-22] MEDS: NYSTATIN 100,000 UNITS/ML 5ML UDC SSW SCH ×4 (00:04→17:29)
[2021-06-22] MEDS: DEXT 5% IV SCH ×4 (00:04→22:00)
[2021-06-22] MEDS: WATER IV SCH ×4 (00:04→22:00)
[2021-06-22] MEDS: METHYLPREDNISOLONE SOD IV SCH ×4 (00:04→22:00)
[2021-06-22] MEDS: DICYCLOMINE HCL 20MG TABLET PO SCH ×4 (00:04→17:30)
[2021-06-22 02:57] LABS: CLARITY URINE CLEAR (CLEAR); COLOR URINE YELLOW (YELLOW); KETONES URINE NEGATIVE (NEGATIVE); LEUKOCYTE ESTERASE URINE NEGATIVE (NEGATIVE); NITRITE URINE NEGATIVE (NEGATIVE); OCCULT BLOOD URINE NEGATIVE (NEGATIVE); PH URINE 6.5 (4.5-8.0); PROTEIN URINE NEGATIVE (NEGATIVE); SPECIFIC GRAVITY URINE 1.009 (1.005-1.030)
[2021-06-22 03:08] LABS: *AMPHETAMINES SCREEN URINE NEGATIVE (NEGATIVE); *BARBITURATES SCREEN URINE NEGATIVE (NEGATIVE); *BENZODIAZEPINES SCREEN URINE NEGATIVE (NEGATIVE); CANNABINOID URINE SCREEN NEGATIVE (NEGATIVE); METHADONE URINE SCREEN NEGATIVE (NEGATIVE); OPIATES URINE SCREEN NEGATIVE (NEGATIVE); PHENCYCLIDINE URINE SCREEN NEGATIVE (NEGATIVE)
[2021-06-22 03:09] LABS: *COCAINE SCREEN URINE NEGATIVE (NEGATIVE)
[2021-06-22] MEDS: PROMACTA PO SCH (05:37)
[2021-06-22] MEDS: PILOCARPINE HCL 5MG TABLET PO SCH ×3 (05:37→22:05)
[2021-06-22 06:49] LABS: MEAN CORPUSCULAR HEMOGLOBIN 30.7 pg (28.0-32.0); MEAN PLATELET VOLUME 9.4 fl (7.4-10.4); RED BLOOD CELL COUNT 2.23 mill/uL (4.2-5.4); RED CELL DISTRIBUTION WIDTH 12.9 % (11.6-14.6)
[2021-06-22] MEDS: LANSOPRAZOLE 30MG DR CAPSULE NG SCH (07:04)
[2021-06-22] MEDS: LEVOTHYROXINE SODIUM 50MCG TABLET PO SCH (07:04)
[2021-06-22 07:18] LABS: CHLORIDE 97 mEq/L (98-107)
[2021-06-22 08:00] LABS: HEMOGLOBIN. 6.9 g/dL (12.0-16.0); PLATELET 8 x1000/uL (130-400)
[2021-06-22] MEDS: ASCORBIC ACID 500 MG TABLET PO SCH ×2 (09:32→22:05)
[2021-06-22] MEDS: FOLIC ACID 1MG TABLET PO SCH (09:32)
[2021-06-22] MEDS: DOCUSATE SODIUM 100MG CAPSULE PO SCH ×2 (09:32→17:30)
[2021-06-22] MEDS: [UNRECOGNIZED DRUG - REMARK] PO SCH ×3 (09:33→17:30)
[2021-06-22] MEDS: FERROUS SULFATE 325MG TABLET PO SCH ×3 (09:36→17:30)
[2021-06-22] MEDS: BLOOD SUGAR DIAGNOSTIC STRIP TEST SCH ×2 (09:37→21:00)
[2021-06-22] MEDS: INSULIN REGULAR HUMAN (HIGH DOSE) 100 UNITS/ML 3ML VIAL IV SCH ×2 (09:39→22:17)
[2021-06-22 16:04] LABS: NUCLEATED RED BLOOD CELLS 3 /100 WBC; PLATELET ESTIMATE MARKEDLY DECREASED
[2021-06-22] MEDS: AMLODIPINE 2.5MG TABLET PO SCH (17:30)
[2021-06-22] MEDS ORDERED: VANCOMYCIN 1 G PREMIX 200 ML IV SCH (20:00)
[2021-06-22] MEDS: METRONIDAZOLE 500 MG PREMIX 100 ML IV SCH (22:00)
[2021-06-22] MEDS ORDERED: CLINDAMYCIN 600MG PREMIX 600 ML IV SCH ×2 (22:00→23:56)
[2021-06-22] MEDS: CYCLOBENZAPRINE 10MG TABLET PO SCH (22:05)
[2021-06-22] MEDS: FILGRASTIM-TBO 300 MCG/0.5 ML SYRINGE SQ SCH (22:06)
[2021-06-22] MEDS ORDERED: CLINDAMYCIN 600MG PREMIX 50 ML IV SCH (23:46)
[2021-06-23] VITALS (10 sets, daily range): BP systolic 119–128; BP diastolic 73–83
[2021-06-23] MEDS ORDERED: CLINDAMYCIN 600MG PREMIX 50 ML IV SCH
[2021-06-23] MEDS: DICYCLOMINE HCL 20MG TABLET PO SCH ×5 (00:06→22:57)
[2021-06-23] MEDS: NYSTATIN 100,000 UNITS/ML 5ML UDC SSW SCH ×5 (00:06→22:57)
[2021-06-23] MEDS ORDERED: VANCOMYCIN 500 MG PREMIX 100 ML IV SCH ×2 (02:00→14:00)
[2021-06-23] MEDS: WATER IV SCH (04:23)
[2021-06-23] MEDS: DEXT 5% IV SCH (04:23)
[2021-06-23] MEDS: METHYLPREDNISOLONE SOD IV SCH (04:23)
[2021-06-23] MEDS: METRONIDAZOLE 500 MG PREMIX 100 ML IV SCH ×2 (04:23→09:48)
[2021-06-23] MEDS: LEVOTHYROXINE SODIUM 50MCG TABLET PO SCH (05:50)
[2021-06-23] MEDS: PILOCARPINE HCL 5MG TABLET PO SCH ×3 (05:50→21:10)
[2021-06-23] MEDS: PROMACTA PO SCH (05:51)
[2021-06-23] MEDS: LANSOPRAZOLE 30MG DR CAPSULE NG SCH (07:23)
[2021-06-23] MEDS: CLINDAMYCIN 600MG PREMIX 50 ML IV SCH ×2 (07:23→14:25)
[2021-06-23 08:00] LABS: CHLORIDE 98 mEq/L (98-107)
[2021-06-23 08:04] LABS: HEMOGLOBIN. 9.1 g/dL (12.0-16.0); MEAN CORPUSCULAR VOLUME 85.7 fL (81.0-99.0); MEAN PLATELET VOLUME 10.2 fl (7.4-10.4); RED BLOOD CELL COUNT 2.92 mill/uL (4.2-5.4); RED CELL DISTRIBUTION WIDTH 13.1 % (11.6-14.6)
[2021-06-23 08:17] LABS: PLATELET 38 x1000/uL (130-400)
[2021-06-23] MEDS: BLOOD SUGAR DIAGNOSTIC STRIP TEST SCH ×2 (09:00→21:10)
[2021-06-23 09:10] LABS: HELICOBACTER PYLORI AB IGG 1.8 (0.00-0.79)
[2021-06-23] MEDS: FOLIC ACID 1MG TABLET PO SCH (09:46)
[2021-06-23] MEDS: FERROUS SULFATE 325MG TABLET PO SCH ×3 (09:46→17:37)
[2021-06-23] MEDS: [UNRECOGNIZED DRUG - REMARK] PO SCH ×3 (09:46→17:38)
[2021-06-23] MEDS: ASCORBIC ACID 500 MG TABLET PO SCH ×2 (09:46→21:09)
[2021-06-23] MEDS: DOCUSATE SODIUM 100MG CAPSULE PO SCH ×2 (09:46→17:37)
[2021-06-23 09:50] LABS: NUCLEATED RED BLOOD CELLS 12 /100 WBC; PLATELET ESTIMATE MARKEDLY DECREASED
[2021-06-23] MEDS: INSULIN REGULAR HUMAN (HIGH DOSE) 100 UNITS/ML 3ML VIAL IV SCH ×2 (10:18→21:12)
[2021-06-23] MEDS: METHYLPREDNISOLONE SOD SUCC 125 MG/2 ML VIAL IV SCH ×3 (12:45→22:57)
[2021-06-23] MEDS ORDERED: [UNRECOGNIZED DRUG - MIXTURE] XX SCH (14:45)
[2021-06-23] MEDS ORDERED: CEFTRIAXONE 1 G PREMIX 50 ML IV SCH (14:45)
[2021-06-23] MEDS ORDERED: TETRACYCLINE HCL 250MG CAPSULE PO SCH (17:00)
[2021-06-23] MEDS: METRONIDAZOLE 250MG TABLET PO SCH ×2 (17:36→21:09)
[2021-06-23] MEDS: BISMUTH SUBSALICYLATE 262 MG/15 ML-120ML BOTTLE PO SCH ×2 (17:36→21:13)
[2021-06-23] MEDS: CEFTRIAXONE 1,000 MG in DEXTROSE 5% WATER 50 ML IV SCH (17:37)
[2021-06-23] MEDS: AMLODIPINE 2.5MG TABLET PO SCH (18:24)
[2021-06-23] MEDS: CYCLOBENZAPRINE 10MG TABLET PO SCH (21:13)
[2021-06-23] MEDS: FILGRASTIM-TBO 300 MCG/0.5 ML SYRINGE SQ SCH (21:14)
[2021-06-24] VITALS (9 sets, daily range): BP systolic 120–140; BP diastolic 75–86
[2021-06-24] MEDS: DICYCLOMINE HCL 20MG TABLET PO SCH ×4 (06:06→23:14)
[2021-06-24] MEDS: LEVOTHYROXINE SODIUM 50MCG TABLET PO SCH (06:06)
[2021-06-24] MEDS: LANSOPRAZOLE 30MG DR CAPSULE NG SCH (06:07)
[2021-06-24] MEDS: METHYLPREDNISOLONE SOD SUCC 125 MG/2 ML VIAL IV SCH ×4 (06:07→23:14)
[2021-06-24] MEDS: PILOCARPINE HCL 5MG TABLET PO SCH ×3 (06:07→21:13)
[2021-06-24] MEDS: PROMACTA PO SCH (06:07)
[2021-06-24 08:19] LABS: HEMATOCRIT. 23.8 % (36.0-48.0); HEMOGLOBIN. 8.3 g/dL (12.0-16.0); MEAN CORPUSCULAR HEMOGLOBIN 30.1 pg (28.0-32.0); MEAN CORPUSCULAR VOLUME 85.7 fL (81.0-99.0); MEAN PLATELET VOLUME 9.3 fl (7.4-10.4); RED BLOOD CELL COUNT 2.77 mill/uL (4.2-5.4); RED CELL DISTRIBUTION WIDTH 13.1 % (11.6-14.6)
[2021-06-24 08:24] LABS: CHLORIDE 96 mEq/L (98-107)
[2021-06-24] MEDS: BLOOD SUGAR DIAGNOSTIC STRIP TEST SCH ×2 (08:39→21:18)
[2021-06-24] MEDS: FOLIC ACID 1MG TABLET PO SCH (08:50)
[2021-06-24] MEDS: METRONIDAZOLE 250MG TABLET PO SCH ×4 (08:50→21:14)
[2021-06-24] MEDS: DOCUSATE SODIUM 100MG CAPSULE PO SCH ×2 (08:50→17:38)
[2021-06-24] MEDS: BISMUTH SUBSALICYLATE 262 MG/15 ML-120ML BOTTLE PO SCH ×4 (08:50→21:19)
[2021-06-24] MEDS: FERROUS SULFATE 325MG TABLET PO SCH ×3 (08:51→17:38)
[2021-06-24] MEDS: INSULIN REGULAR HUMAN (HIGH DOSE) 100 UNITS/ML 3ML VIAL IV SCH ×2 (08:51→21:17)
[2021-06-24] MEDS: ASCORBIC ACID 500 MG TABLET PO SCH ×2 (08:51→21:14)
[2021-06-24 08:54] LABS: PLATELET 10 x1000/uL (130-400)
[2021-06-24 10:07] LABS: HELICOBACTER PYLORI IGM <9.0 units (0.0-8.9)
[2021-06-24] MEDS: CEFTRIAXONE 1,000 MG in DEXTROSE 5% WATER 50 ML IV SCH (13:17)
[2021-06-24] MEDS: TETRACYCLINE HCL 250MG CAPSULE PO SCH ×3 (13:18→21:14)
[2021-06-24 13:31] LABS: NUCLEATED RED BLOOD CELLS 10 /100 WBC; PLATELET ESTIMATE MARKEDLY DECREASED
[2021-06-24] MEDS: VISCOUS LIDOCAINE 2% 15 ML UDC PO SCH (17:38)
[2021-06-24] MEDS: AMLODIPINE 2.5MG TABLET PO SCH (17:38)
[2021-06-24] MEDS: CYCLOBENZAPRINE 10MG TABLET PO SCH (21:14)
[2021-06-24] MEDS: FILGRASTIM-TBO 300 MCG/0.5 ML SYRINGE SQ SCH (21:15)
[2021-06-24] MEDS: NYSTATIN 100,000 UNITS/ML 5ML UDC SSW SCH (21:16)
[2021-06-24] MEDS ORDERED: BLOOD SUGAR DIAGNOSTIC STRIP TEST SCH (21:45)
[2021-06-24] MEDS: LORAZEPAM 0.5MG TABLET PO PRN (23:14)
[2021-06-25] VITALS (9 sets, daily range): BP systolic 106–128; BP diastolic 75–81
[2021-06-25 03:32] LABS: HEMATOCRIT. 24.1 % (36.0-48.0); HEMOGLOBIN. 8.3 g/dL (12.0-16.0); MEAN CORPUSCULAR HEMOGLOBIN 29.8 pg (28.0-32.0); MEAN CORPUSCULAR VOLUME 86.8 fL (81.0-99.0); MEAN PLATELET VOLUME 9.3 fl (7.4-10.4); RED BLOOD CELL COUNT 2.78 mill/uL (4.2-5.4); RED CELL DISTRIBUTION WIDTH 13.4 % (11.6-14.6)
[2021-06-25 03:36] LABS: CHLORIDE 96 mEq/L (98-107)
[2021-06-25 03:57] LABS: PLATELET 7 x1000/uL (130-400)
[2021-06-25 04:09] LABS: ANA IFA Positive (.)
[2021-06-25] MEDS: VISCOUS LIDOCAINE 2% 15 ML UDC PO SCH ×4 (06:40→16:37)
[2021-06-25] MEDS: LEVOTHYROXINE SODIUM 50MCG TABLET PO SCH (06:43)
[2021-06-25] MEDS: DICYCLOMINE HCL 20MG TABLET PO SCH ×4 (06:43→23:24)
[2021-06-25] MEDS: METHYLPREDNISOLONE SOD SUCC 125 MG/2 ML VIAL IV SCH ×4 (06:43→23:24)
[2021-06-25] MEDS: LANSOPRAZOLE 30MG DR CAPSULE NG SCH (06:43)
[2021-06-25] MEDS: PILOCARPINE HCL 5MG TABLET PO SCH ×3 (06:43→21:55)
[2021-06-25] MEDS: PROMACTA PO SCH (06:44)
[2021-06-25] MEDS: FERROUS SULFATE 325MG TABLET PO SCH ×3 (06:44→17:39)
[2021-06-25] MEDS: INSULIN REGULAR HUMAN (HIGH DOSE) 100 UNITS/ML 3ML VIAL IV SCH ×2 (08:56→22:29)
[2021-06-25] MEDS: BISMUTH SUBSALICYLATE 262 MG/15 ML-120ML BOTTLE PO SCH ×4 (08:56→21:56)
[2021-06-25] MEDS: METRONIDAZOLE 250MG TABLET PO SCH ×4 (08:56→21:55)
[2021-06-25] MEDS: ASCORBIC ACID 500 MG TABLET PO SCH ×2 (08:56→21:56)
[2021-06-25] MEDS: FOLIC ACID 1MG TABLET PO SCH (08:56)
[2021-06-25] MEDS: DOCUSATE SODIUM 100MG CAPSULE PO SCH ×2 (08:56→17:40)
[2021-06-25] MEDS: TETRACYCLINE HCL 250MG CAPSULE PO SCH ×4 (08:57→21:56)
[2021-06-25 12:31] LABS: NUCLEATED RED BLOOD CELLS 20 /100 WBC
[2021-06-25 12:32] LABS: PLATELET ESTIMATE MARKEDLY DECREASED
[2021-06-25] MEDS: CEFTRIAXONE 1,000 MG in DEXTROSE 5% WATER 50 ML IV SCH (13:06)
[2021-06-25] MEDS: AMLODIPINE 2.5MG TABLET PO SCH ×2 (17:00→17:39)
[2021-06-25] MEDS: FILGRASTIM-TBO 300 MCG/0.5 ML SYRINGE SQ SCH (21:55)
[2021-06-25] MEDS: NYSTATIN 100,000 UNITS/ML 5ML UDC SSW SCH (21:55)
[2021-06-25] MEDS: CYCLOBENZAPRINE 10MG TABLET PO SCH (21:56)
[2021-06-26] VITALS (17 sets, daily range): BP systolic 109–134; BP diastolic 72–86
[2021-06-26 05:58] LABS: CHLORIDE 96 mEq/L (98-107)
[2021-06-26 06:28] LABS: MEAN CORPUSCULAR HEMOGLOBIN 29.9 pg (28.0-32.0); MEAN CORPUSCULAR VOLUME 86.1 fL (81.0-99.0); MEAN PLATELET VOLUME 9.2 fl (7.4-10.4); RED BLOOD CELL COUNT 2.34 mill/uL (4.2-5.4); RED CELL DISTRIBUTION WIDTH 13.4 % (11.6-14.6)
[2021-06-26] MEDS: PROMACTA PO SCH (06:43)
[2021-06-26] MEDS: LANSOPRAZOLE 30MG DR CAPSULE NG SCH (06:43)
[2021-06-26] MEDS: VISCOUS LIDOCAINE 2% 15 ML UDC PO SCH ×3 (06:43→16:02)
[2021-06-26] MEDS: DICYCLOMINE HCL 20MG TABLET PO SCH ×4 (06:44→23:09)
[2021-06-26] MEDS: FERROUS SULFATE 325MG TABLET PO SCH ×3 (06:44→17:04)
[2021-06-26] MEDS: PILOCARPINE HCL 5MG TABLET PO SCH ×3 (06:44→21:56)
[2021-06-26] MEDS: LEVOTHYROXINE SODIUM 50MCG TABLET PO SCH (06:44)
[2021-06-26] MEDS: METHYLPREDNISOLONE SOD SUCC 125 MG/2 ML VIAL IV SCH ×4 (06:45→23:09)
[2021-06-26 07:08] LABS: BARBITURATE SCREEN Negative ug/mL (Cutoff:0.1); BENZODIAZEPINE SCREEN Negative ng/mL (Cutoff:20); OPIATES SCREEN Negative ng/mL (Cutoff:5); PHENCYCLIDINE SCREEN Negative ng/mL (Cutoff:8)
[2021-06-26 08:00] LABS: HEMATOCRIT. 20.2 % (36.0-48.0)
[2021-06-26 08:01] LABS: PLATELET 8 x1000/uL (130-400)
[2021-06-26] MEDS: TETRACYCLINE HCL 250MG CAPSULE PO SCH ×4 (08:07→21:56)
[2021-06-26] MEDS: FOLIC ACID 1MG TABLET PO SCH (08:07)
[2021-06-26] MEDS: METRONIDAZOLE 250MG TABLET PO SCH ×4 (08:07→21:57)
[2021-06-26] MEDS: ASCORBIC ACID 500 MG TABLET PO SCH ×2 (08:07→21:56)
[2021-06-26] MEDS: DOCUSATE SODIUM 100MG CAPSULE PO SCH ×2 (08:07→17:04)
[2021-06-26] MEDS: BISMUTH SUBSALICYLATE 262 MG/15 ML-120ML BOTTLE PO SCH ×4 (08:10→21:56)
[2021-06-26] MEDS: INSULIN REGULAR HUMAN (HIGH DOSE) 100 UNITS/ML 3ML VIAL IV SCH ×2 (08:12→21:58)
[2021-06-26] MEDS: CEFTRIAXONE 1,000 MG in DEXTROSE 5% WATER 50 ML IV SCH (12:56)
[2021-06-26 13:34] LABS: NUCLEATED RED BLOOD CELLS 6 /100 WBC
[2021-06-26 13:35] LABS: PLATELET ESTIMATE MARKEDLY DECREASED
[2021-06-26] MEDS: AMLODIPINE 2.5MG TABLET PO SCH (17:04)
[2021-06-26] MEDS: NYSTATIN 100,000 UNITS/ML 5ML UDC SSW SCH (21:56)
[2021-06-26] MEDS: CYCLOBENZAPRINE 10MG TABLET PO SCH (21:56)
[2021-06-26] MEDS: FILGRASTIM-TBO 300 MCG/0.5 ML SYRINGE SQ SCH (23:09)
[2021-06-27] VITALS: BP 123/81
[2021-06-27 05:30] VITALS: BP 110/70
[2021-06-27] MEDS: LANSOPRAZOLE 30MG DR CAPSULE NG SCH (06:27)
[2021-06-27] MEDS: PILOCARPINE HCL 5MG TABLET PO SCH ×3 (06:27→21:05)
[2021-06-27] MEDS: DICYCLOMINE HCL 20MG TABLET PO SCH ×4 (06:28→22:59)
[2021-06-27] MEDS: VISCOUS LIDOCAINE 2% 15 ML UDC PO SCH ×3 (06:28→16:02)
[2021-06-27] MEDS: METHYLPREDNISOLONE SOD SUCC 125 MG/2 ML VIAL IV SCH ×4 (06:28→22:58)
[2021-06-27] MEDS: LEVOTHYROXINE SODIUM 50MCG TABLET PO SCH (06:28)
[2021-06-27] MEDS: PROMACTA PO SCH (06:29)
[2021-06-27 06:49] LABS: HEMATOCRIT. 21.4 % (36.0-48.0); HEMOGLOBIN. 7.5 g/dL (12.0-16.0); MEAN CORPUSCULAR HEMOGLOBIN 30.2 pg (28.0-32.0); MEAN CORPUSCULAR VOLUME 85.7 fL (81.0-99.0); MEAN PLATELET VOLUME 8.4 fl (7.4-10.4); RED BLOOD CELL COUNT 2.49 mill/uL (4.2-5.4); RED CELL DISTRIBUTION WIDTH 13.7 % (11.6-14.6)
[2021-06-27 07:33] LABS: PLATELET 18 x1000/uL (130-400)
[2021-06-27 07:51] LABS: CHLORIDE 97 mEq/L (98-107)
[2021-06-27 08:00] VITALS: BP 115/83
[2021-06-27] MEDS: METRONIDAZOLE 250MG TABLET PO SCH ×4 (08:14→21:08)
[2021-06-27] MEDS: ASCORBIC ACID 500 MG TABLET PO SCH ×2 (08:14→21:07)
[2021-06-27] MEDS: TETRACYCLINE HCL 250MG CAPSULE PO SCH ×4 (08:14→21:12)
[2021-06-27] MEDS: DOCUSATE SODIUM 100MG CAPSULE PO SCH ×2 (08:14→17:30)
[2021-06-27] MEDS: FOLIC ACID 1MG TABLET PO SCH (08:14)
[2021-06-27] MEDS: FERROUS SULFATE 325MG TABLET PO SCH ×3 (08:14→17:30)
[2021-06-27] MEDS: BISMUTH SUBSALICYLATE 262 MG/15 ML-120ML BOTTLE PO SCH ×4 (08:15→21:09)
[2021-06-27] MEDS: INSULIN REGULAR HUMAN (HIGH DOSE) 100 UNITS/ML 3ML VIAL IV SCH ×2 (08:16→21:11)
[2021-06-27] MEDS ORDERED: KCL 20MEQ/100ML PREMIX 100 ML IV NR (11:30)
[2021-06-27 12:00] VITALS: BP 117/79
[2021-06-27] MEDS: CEFTRIAXONE 1,000 MG in DEXTROSE 5% WATER 50 ML IV SCH (14:57)
[2021-06-27 15:43] LABS: NUCLEATED RED BLOOD CELLS 3 /100 WBC; PLATELET ESTIMATE MARKEDLY DECREASED
[2021-06-27 16:00] VITALS: BP 121/83
[2021-06-27] MEDS: AMLODIPINE 2.5MG TABLET PO SCH (17:30)
[2021-06-27 20:00] VITALS: BP 114/85
[2021-06-27] MEDS: NYSTATIN 100,000 UNITS/ML 5ML UDC SSW SCH (21:05)
[2021-06-27] MEDS: CYCLOBENZAPRINE 10MG TABLET PO SCH (21:09)
[2021-06-27] MEDS: FILGRASTIM-TBO 300 MCG/0.5 ML SYRINGE SQ SCH (21:15)
[2021-06-27] MEDS: DEXT 5%/0.45% NACL 1000ML 1,000 ML IV SCH (21:57)
[2021-06-28] VITALS (13 sets, daily range): BP systolic 117–147; BP diastolic 71–89
[2021-06-28 04:07] LABS: HLA CLASS 1 ANTIBODY Negative (Negative); IIb/IIIa ANTIBODY Positive (Negative); Ib/IX ANTIBODY Negative (Negative)
[2021-06-28] MEDS: DICYCLOMINE HCL 20MG TABLET PO SCH ×3 (05:15→17:08)
[2021-06-28] MEDS: METHYLPREDNISOLONE SOD SUCC 125 MG/2 ML VIAL IV SCH ×3 (05:15→18:15)
[2021-06-28] MEDS: PILOCARPINE HCL 5MG TABLET PO SCH ×2 (05:16→13:00)
[2021-06-28] MEDS: VISCOUS LIDOCAINE 2% 15 ML UDC PO SCH ×4 (05:16→15:45)
[2021-06-28] MEDS: LEVOTHYROXINE SODIUM 50MCG TABLET PO SCH (05:16)
[2021-06-28] MEDS: PROMACTA PO SCH (05:16)
[2021-06-28] MEDS: LANSOPRAZOLE 30MG DR CAPSULE NG SCH (05:16)
[2021-06-28 06:18] LABS: HEMATOCRIT. 23.4 % (36.0-48.0); HEMOGLOBIN. 8.1 g/dL (12.0-16.0); MEAN CORPUSCULAR HEMOGLOBIN 30.3 pg (28.0-32.0); MEAN CORPUSCULAR VOLUME 87.8 fL (81.0-99.0); MEAN PLATELET VOLUME 9.1 fl (7.4-10.4); RED BLOOD CELL COUNT 2.67 mill/uL (4.2-5.4); RED CELL DISTRIBUTION WIDTH 13.5 % (11.6-14.6)
[2021-06-28 06:31] LABS: CHLORIDE 97 mEq/L (98-107)
[2021-06-28 06:56] LABS: PLATELET 8 x1000/uL (130-400)
[2021-06-28] MEDS: DEXT 5%/0.45% NACL 1000ML 1,000 ML IV SCH ×2 (07:00→15:45)
[2021-06-28] MEDS: [UNRECOGNIZED DRUG - REMARK] PO SCH ×3 (09:00→16:50)
[2021-06-28] MEDS ORDERED: KCL 20MEQ/100ML PREMIX 100 ML IV NR (09:00)
[2021-06-28] MEDS: TETRACYCLINE HCL 250MG CAPSULE PO SCH ×4 (09:51→21:00)
[2021-06-28] MEDS: ASCORBIC ACID 500 MG TABLET PO SCH ×2 (09:51→21:00)
[2021-06-28] MEDS: BISMUTH SUBSALICYLATE 262 MG/15 ML-120ML BOTTLE PO SCH ×4 (09:51→21:00)
[2021-06-28] MEDS: FERROUS SULFATE 325MG TABLET PO SCH ×3 (09:51→16:58)
[2021-06-28] MEDS: METRONIDAZOLE 250MG TABLET PO SCH ×4 (09:51→21:00)
[2021-06-28] MEDS: DOCUSATE SODIUM 100MG CAPSULE PO SCH ×2 (09:52→16:57)
[2021-06-28] MEDS: FOLIC ACID 1MG TABLET PO SCH (09:52)
[2021-06-28 09:57] LABS: NUCLEATED RED BLOOD CELLS 4 /100 WBC
[2021-06-28 09:58] LABS: PLATELET ESTIMATE MARKEDLY DECREASED
[2021-06-28] MEDS: INSULIN REGULAR HUMAN (HIGH DOSE) 100 UNITS/ML 3ML VIAL IV SCH ×2 (09:58→21:30)
[2021-06-28] MEDS: CEFTRIAXONE 1,000 MG in DEXTROSE 5% WATER 50 ML IV SCH (13:00)
[2021-06-28] MEDS ORDERED: NON FORMULARY PATIENT HOME MED PO SCH (14:30)
[2021-06-28] MEDS: LORAZEPAM 0.5MG TABLET PO PRN (15:06)
[2021-06-28] MEDS ORDERED: THROAT LOZENGES-BENZOCAINE/MENTH/CETYLPYRD CL LOZENGES MM PRN (16:45)
[2021-06-28] MEDS: AMLODIPINE 2.5MG TABLET PO SCH (16:57)
[2021-06-28] MEDS: NYSTATIN 100,000 UNITS/ML 5ML UDC SSW SCH (17:09)
[2021-06-28] MEDS: FILGRASTIM-TBO 300 MCG/0.5 ML SYRINGE SQ SCH (21:32)
[2021-06-29] VITALS (7 sets, daily range): BP systolic 117–137; BP diastolic 72–82
[2021-06-29] MEDS: METHYLPREDNISOLONE SOD SUCC 125 MG/2 ML VIAL IV SCH ×5 (00:21→22:54)
[2021-06-29] MEDS: NYSTATIN 100,000 UNITS/ML 5ML UDC SSW SCH ×5 (00:23→22:54)
[2021-06-29] MEDS: DEXT 5%/0.45% NACL 1000ML 1,000 ML IV SCH ×3 (02:00→21:18)
[2021-06-29] MEDS: DICYCLOMINE HCL 20MG TABLET PO SCH ×5 (04:44→23:03)
[2021-06-29] MEDS: VISCOUS LIDOCAINE 2% 15 ML UDC PO SCH ×3 (04:45→16:40)
[2021-06-29] MEDS: LEVOTHYROXINE SODIUM 50MCG TABLET PO SCH (04:45)
[2021-06-29] MEDS: LANSOPRAZOLE 30MG DR CAPSULE NG SCH (04:45)
[2021-06-29] MEDS: PROMACTA PO SCH (04:45)
[2021-06-29 06:08] LABS: CHLORIDE 96 mEq/L (98-107)
[2021-06-29 06:15] LABS: HEMATOCRIT. 21.1 % (36.0-48.0); HEMOGLOBIN. 7.4 g/dL (12.0-16.0); MEAN CORPUSCULAR HEMOGLOBIN 30.2 pg (28.0-32.0); MEAN CORPUSCULAR VOLUME 86.1 fL (81.0-99.0); MEAN PLATELET VOLUME 9.2 fl (7.4-10.4); RED BLOOD CELL COUNT 2.45 mill/uL (4.2-5.4); RED CELL DISTRIBUTION WIDTH 13.6 % (11.6-14.6)
[2021-06-29 07:01] LABS: PLATELET 44 x1000/uL (130-400)
[2021-06-29] MEDS: FERROUS SULFATE 325MG TABLET PO SCH ×3 (07:10→16:55)
[2021-06-29] MEDS: PILOCARPINE HCL 5MG TABLET PO SCH ×4 (07:10→17:30)
[2021-06-29] MEDS: INSULIN REGULAR HUMAN (HIGH DOSE) 100 UNITS/ML 3ML VIAL IV SCH ×2 (08:34→21:18)
[2021-06-29] MEDS: TETRACYCLINE HCL 250MG CAPSULE PO SCH ×4 (08:35→21:00)
[2021-06-29] MEDS: BISMUTH SUBSALICYLATE 262 MG/15 ML-120ML BOTTLE PO SCH ×4 (08:35→21:00)
[2021-06-29] MEDS: DOCUSATE SODIUM 100MG CAPSULE PO SCH ×2 (08:35→16:54)
[2021-06-29] MEDS: METRONIDAZOLE 250MG TABLET PO SCH ×4 (08:35→21:00)
[2021-06-29] MEDS: ASCORBIC ACID 500 MG TABLET PO SCH ×2 (08:35→21:00)
[2021-06-29] MEDS ORDERED: FENTANYL CITRATE/PF 50MCG/ML 2ML VIAL ONE (10:12)
[2021-06-29] MEDS ORDERED: PROPOFOL 200MG/20ML VIAL IV ONE (10:12)
[2021-06-29] MEDS ORDERED: MIDAZOLAM HCL 2 MG/2 ML VIAL ONE (10:13)
[2021-06-29] MEDS ORDERED: HYDROMORPHONE HCL/PF 2MG/ML CPJ IV PRN (10:15)
[2021-06-29] MEDS ORDERED: ONDANSETRON HCL 4MG/2ML INJ IV PRN (10:15)
[2021-06-29] MEDS ORDERED: MEPERIDINE HCL/PF 25MG/ML CPJ IV PRN (10:15)
[2021-06-29] MEDS ORDERED: LABETALOL 5MG/ML SYR 20 MG/4 ML SYRINGE IV PRN (10:15)
[2021-06-29 10:28] LABS: NUCLEATED RED BLOOD CELLS 8 /100 WBC
[2021-06-29 10:29] LABS: PLATELET ESTIMATE MARKEDLY DECREASED
[2021-06-29] MEDS ORDERED: ONDANSETRON HCL 4MG/2ML INJ ONE (10:30)
[2021-06-29] MEDS ORDERED: DEXAMETHASONE 4MG/ML 1ML VIAL ONE (10:30)
[2021-06-29] MEDS ORDERED: POTASSIUM CHLORIDE INJ 30 MEQ in DEXT 5% WATER 250 ML IV SCH (13:00)
[2021-06-29] MEDS: AMLODIPINE 2.5MG TABLET PO SCH (16:55)
[2021-06-29] MEDS: FILGRASTIM-TBO 300 MCG/0.5 ML SYRINGE SQ SCH (21:19)
[2021-06-30] VITALS (12 sets, daily range): BP systolic 110–138; BP diastolic 70–87
[2021-06-30] MEDS: METHYLPREDNISOLONE SOD SUCC 125 MG/2 ML VIAL IV SCH ×4 (05:48→22:38)
[2021-06-30] MEDS: NYSTATIN 100,000 UNITS/ML 5ML UDC SSW SCH ×4 (05:48→22:38)
[2021-06-30] MEDS: PROMACTA PO SCH (06:00)
[2021-06-30] MEDS: DICYCLOMINE HCL 20MG TABLET PO SCH ×4 (06:00→23:44)
[2021-06-30] MEDS: LEVOTHYROXINE SODIUM 50MCG TABLET PO SCH (06:03)
[2021-06-30] MEDS: VISCOUS LIDOCAINE 2% 15 ML UDC PO SCH ×3 (06:03→16:26)
[2021-06-30] MEDS: LANSOPRAZOLE 30MG DR CAPSULE NG SCH (06:03)
[2021-06-30 06:55] LABS: MEAN CORPUSCULAR HEMOGLOBIN 30.2 pg (28.0-32.0); MEAN CORPUSCULAR VOLUME 87.1 fL (81.0-99.0); MEAN PLATELET VOLUME 8.6 fl (7.4-10.4); RED BLOOD CELL COUNT 2.28 mill/uL (4.2-5.4); RED CELL DISTRIBUTION WIDTH 13.6 % (11.6-14.6)
[2021-06-30 06:58] LABS: CHLORIDE 98 mEq/L (98-107)
[2021-06-30 07:00] LABS: HEMOGLOBIN. 6.9 g/dL (12.0-16.0)
[2021-06-30 07:01] LABS: HEMATOCRIT. 19.9 % (36.0-48.0); PLATELET 15 x1000/uL (130-400)
[2021-06-30] MEDS: FERROUS SULFATE 325MG TABLET PO SCH ×3 (07:10→16:27)
[2021-06-30] MEDS: PILOCARPINE HCL 5MG TABLET PO SCH ×4 (08:49→17:53)
[2021-06-30] MEDS: TETRACYCLINE HCL 250MG CAPSULE PO SCH (09:00)
[2021-06-30] MEDS: METRONIDAZOLE 250MG TABLET PO SCH ×3 (09:00→16:26)
[2021-06-30] MEDS: DOCUSATE SODIUM 100MG CAPSULE PO SCH ×2 (09:00→16:26)
[2021-06-30] MEDS: BISMUTH SUBSALICYLATE 262 MG/15 ML-120ML BOTTLE PO SCH ×4 (09:00→21:00)
[2021-06-30] MEDS: ASCORBIC ACID 500 MG TABLET PO SCH ×2 (09:00→21:00)
[2021-06-30] MEDS: INSULIN REGULAR HUMAN (HIGH DOSE) 100 UNITS/ML 3ML VIAL IV SCH ×2 (09:06→22:38)
[2021-06-30] MEDS: DEXT 5%/0.45% NACL 1000ML 1,000 ML IV SCH ×2 (11:49→17:24)
[2021-06-30 14:08] LABS: NUCLEATED RED BLOOD CELLS 6 /100 WBC
[2021-06-30 14:09] LABS: PLATELET ESTIMATE MARKEDLY DECREASED
[2021-06-30] MEDS: AMLODIPINE 2.5MG TABLET PO SCH (16:27)
[2021-07-01] VITALS (11 sets, daily range): BP systolic 112–151; BP diastolic 70–91
[2021-07-01] MEDS: NYSTATIN 100,000 UNITS/ML 5ML UDC SSW SCH ×3 (05:11→17:27)
[2021-07-01] MEDS: DEXT 5%/0.45% NACL 1000ML 1,000 ML IV SCH ×3 (05:11→23:51)
[2021-07-01] MEDS: METHYLPREDNISOLONE SOD SUCC 125 MG/2 ML VIAL IV SCH ×3 (05:11→17:31)
[2021-07-01] MEDS: DICYCLOMINE HCL 20MG TABLET PO SCH ×4 (06:00→23:57)
[2021-07-01] MEDS: PROMACTA PO SCH (06:00)
[2021-07-01 06:34] LABS: CHLORIDE 98 mEq/L (98-107)
[2021-07-01] MEDS: VISCOUS LIDOCAINE 2% 15 ML UDC PO SCH ×3 (06:40→16:05)
[2021-07-01] MEDS: LEVOTHYROXINE SODIUM 50MCG TABLET PO SCH (06:40)
[2021-07-01] MEDS: LANSOPRAZOLE 30MG DR CAPSULE NG SCH (06:40)
[2021-07-01 06:41] LABS: HEMATOCRIT. 28.1 % (36.0-48.0); MEAN CORPUSCULAR HEMOGLOBIN 30.2 pg (28.0-32.0); MEAN CORPUSCULAR VOLUME 84.7 fL (81.0-99.0); MEAN PLATELET VOLUME 7.8 fl (7.4-10.4); RED BLOOD CELL COUNT 3.32 mill/uL (4.2-5.4); RED CELL DISTRIBUTION WIDTH 14.3 % (11.6-14.6)
[2021-07-01 06:54] LABS: PLATELET 34 x1000/uL (130-400)
[2021-07-01] MEDS: FERROUS SULFATE 325MG TABLET PO SCH ×3 (07:10→16:39)
[2021-07-01] MEDS: PILOCARPINE HCL 5MG TABLET PO SCH ×3 (07:10→17:31)
[2021-07-01] MEDS: ASCORBIC ACID 500 MG TABLET PO SCH ×2 (09:00→21:00)
[2021-07-01] MEDS: DOCUSATE SODIUM 100MG CAPSULE PO SCH ×2 (09:00→16:05)
[2021-07-01] MEDS: BISMUTH SUBSALICYLATE 262 MG/15 ML-120ML BOTTLE PO SCH ×4 (09:00→21:00)
[2021-07-01] MEDS: INSULIN REGULAR HUMAN (HIGH DOSE) 100 UNITS/ML 3ML VIAL IV SCH ×3 (09:12→21:13)
[2021-07-01] MEDS ORDERED: MIDAZOLAM HCL 2 MG/2 ML VIAL ONE (09:59)
[2021-07-01] MEDS ORDERED: PROPOFOL 200MG/20ML VIAL IV ONE (09:59)
[2021-07-01] MEDS ORDERED: LIDOCAINE HCL 1% 30ML VIAL (10MG/ML) ONE (10:01)
[2021-07-01 10:44] LABS: NUCLEATED RED BLOOD CELLS 15 /100 WBC; PLATELET ESTIMATE MARKEDLY DECREASED
[2021-07-01] MEDS: AMLODIPINE 2.5MG TABLET PO SCH (16:06)
[2021-07-01] MEDS ORDERED: POTASSIUM CHLORIDE 20MEQ TABLET SR PO NR (21:15)
[2021-07-02] VITALS: BP 130/70
[2021-07-02 04:00] VITALS: BP 127/74
[2021-07-02] MEDS: METHYLPREDNISOLONE SOD SUCC 125 MG/2 ML VIAL IV SCH ×4 (05:07→18:30)
[2021-07-02] MEDS: NYSTATIN 100,000 UNITS/ML 5ML UDC SSW SCH ×4 (05:07→18:30)
[2021-07-02] MEDS: PROMACTA PO SCH (05:53)
[2021-07-02] MEDS: LANSOPRAZOLE 30MG DR CAPSULE NG SCH (05:53)
[2021-07-02] MEDS: DICYCLOMINE HCL 20MG TABLET PO SCH ×3 (05:53→18:31)
[2021-07-02] MEDS: LEVOTHYROXINE SODIUM 50MCG TABLET PO SCH (05:54)
[2021-07-02] MEDS: VISCOUS LIDOCAINE 2% 15 ML UDC PO SCH ×3 (05:54→16:40)
[2021-07-02 06:27] LABS: CHLORIDE 100 mEq/L (98-107)
[2021-07-02] MEDS: FERROUS SULFATE 325MG TABLET PO SCH ×3 (06:31→18:31)
[2021-07-02] MEDS: PILOCARPINE HCL 5MG TABLET PO SCH ×3 (06:31→18:31)
[2021-07-02 08:00] VITALS: BP 104/69
[2021-07-02] MEDS: DOCUSATE SODIUM 100MG CAPSULE PO SCH ×3 (08:18→18:30)
[2021-07-02] MEDS: ASCORBIC ACID 500 MG TABLET PO SCH ×2 (08:18→21:57)
[2021-07-02] MEDS: BISMUTH SUBSALICYLATE 262 MG/15 ML-120ML BOTTLE PO SCH ×5 (08:18→22:27)
[2021-07-02] MEDS: INSULIN REGULAR HUMAN (HIGH DOSE) 100 UNITS/ML 3ML VIAL IV SCH ×2 (10:19→22:09)
[2021-07-02] MEDS: DEXT 5%/0.45% NACL 1000ML 1,000 ML IV SCH ×2 (10:20→21:59)
[2021-07-02 10:37] LABS: HEMATOCRIT. 30.6 % (36.0-48.0); HEMOGLOBIN. 10.7 g/dL (12.0-16.0); MEAN CORPUSCULAR HEMOGLOBIN 30.3 pg (28.0-32.0); MEAN CORPUSCULAR VOLUME 86.4 fL (81.0-99.0); MEAN PLATELET VOLUME 8.1 fl (7.4-10.4); RED BLOOD CELL COUNT 3.54 mill/uL (4.2-5.4); RED CELL DISTRIBUTION WIDTH 14.6 % (11.6-14.6)
[2021-07-02 12:00] VITALS: BP 120/78
[2021-07-02 12:33] LABS: NUCLEATED RED BLOOD CELLS 6 /100 WBC
[2021-07-02 12:34] LABS: PLATELET 17 x1000/uL (130-400); PLATELET ESTIMATE MARKEDLY DECREASED
[2021-07-02] MEDS ORDERED: NON FORMULARY PATIENT HOME MED PO SCH (14:00)
[2021-07-02] MEDS ORDERED: CEFTRIAXONE 1 G PREMIX 50 ML IV SCH (15:45)
[2021-07-02 16:00] VITALS: BP 141/85
[2021-07-02] MEDS: CEFTRIAXONE 1,000 MG in DEXTROSE 5% WATER 50 ML IV SCH (18:31)
[2021-07-02] MEDS: AMLODIPINE 2.5MG TABLET PO SCH (18:31)
[2021-07-02] MEDS ORDERED: LACTULOSE 20G/30ML UDC PO PRN (19:45)
[2021-07-02 20:00] VITALS: BP 135/86
[2021-07-02] MEDS: FILGRASTIM-TBO 300 MCG/0.5 ML SYRINGE SQ SCH (21:58)
[2021-07-03] VITALS: BP 141/83
[2021-07-03] MEDS: DICYCLOMINE HCL 20MG TABLET PO SCH ×4 (00:10→17:24)
[2021-07-03] MEDS: METHYLPREDNISOLONE SOD SUCC 125 MG/2 ML VIAL IV SCH ×4 (00:10→17:25)
[2021-07-03] MEDS: NYSTATIN 100,000 UNITS/ML 5ML UDC SSW SCH ×4 (00:10→17:24)
[2021-07-03 04:00] VITALS: BP 144/86
[2021-07-03] MEDS: LEVOTHYROXINE SODIUM 50MCG TABLET PO SCH (06:28)
[2021-07-03] MEDS: PROMACTA PO SCH (06:29)
[2021-07-03] MEDS: PILOCARPINE HCL 5MG TABLET PO SCH ×3 (06:30→17:24)
[2021-07-03] MEDS: VISCOUS LIDOCAINE 2% 15 ML UDC PO SCH ×3 (06:40→16:40)
[2021-07-03] MEDS: LANSOPRAZOLE 30MG DR CAPSULE NG SCH (06:55)
[2021-07-03 07:46] LABS: CHLORIDE 99 mEq/L (98-107)
[2021-07-03 08:00] VITALS: BP 112/81
[2021-07-03] MEDS: FERROUS SULFATE 325MG TABLET PO SCH ×3 (08:11→17:24)
[2021-07-03] MEDS: DOCUSATE SODIUM 100MG CAPSULE PO SCH ×2 (08:11→17:25)
[2021-07-03] MEDS: ASCORBIC ACID 500 MG TABLET PO SCH ×2 (08:11→21:17)
[2021-07-03] MEDS: BISMUTH SUBSALICYLATE 262 MG/15 ML-120ML BOTTLE PO SCH ×4 (08:11→21:00)
[2021-07-03] MEDS: INSULIN REGULAR HUMAN (HIGH DOSE) 100 UNITS/ML 3ML VIAL IV SCH ×2 (08:14→21:17)
[2021-07-03] MEDS: DEXT 5%/0.45% NACL 1000ML 1,000 ML IV SCH ×2 (08:15→17:26)
[2021-07-03 08:57] LABS: HEMATOCRIT. 31.2 % (36.0-48.0); MEAN CORPUSCULAR HEMOGLOBIN 29.9 pg (28.0-32.0); MEAN CORPUSCULAR VOLUME 84.7 fL (81.0-99.0); MEAN PLATELET VOLUME 8.5 fl (7.4-10.4); RED BLOOD CELL COUNT 3.68 mill/uL (4.2-5.4); RED CELL DISTRIBUTION WIDTH 14.3 % (11.6-14.6)
[2021-07-03] MEDS ORDERED: PENICILLAMINE PO SCH (09:00)
[2021-07-03] MEDS: PENICILLAMINE 250 MG PO SCH (10:33)
[2021-07-03 10:43] LABS: NUCLEATED RED BLOOD CELLS 7 /100 WBC; PLATELET ESTIMATE MARKEDLY DECREASED
[2021-07-03 10:44] LABS: PLATELET 13 x1000/uL (130-400)
[2021-07-03 12:00] VITALS: BP 116/81
[2021-07-03 16:00] VITALS: BP 121/83
[2021-07-03] MEDS: CEFTRIAXONE 1,000 MG in DEXTROSE 5% WATER 50 ML IV SCH (17:25)
[2021-07-03] MEDS: AMLODIPINE 2.5MG TABLET PO SCH (17:26)
[2021-07-03 20:00] VITALS: BP 111/72
[2021-07-03] MEDS: FILGRASTIM-TBO 300 MCG/0.5 ML SYRINGE SQ SCH (21:17)
[2021-07-04] VITALS (9 sets, daily range): BP systolic 109–134; BP diastolic 70–87
[2021-07-04] MEDS: DICYCLOMINE HCL 20MG TABLET PO SCH ×5 (00:18→22:51)
[2021-07-04] MEDS: METHYLPREDNISOLONE SOD SUCC 125 MG/2 ML VIAL IV SCH ×5 (00:18→22:51)
[2021-07-04] MEDS: NYSTATIN 100,000 UNITS/ML 5ML UDC SSW SCH ×3 (00:18→11:56)
[2021-07-04] MEDS: DEXT 5%/0.45% NACL 1000ML 1,000 ML IV SCH ×2 (02:00→18:25)
[2021-07-04] MEDS: LEVOTHYROXINE SODIUM 50MCG TABLET PO SCH (06:16)
[2021-07-04] MEDS: LANSOPRAZOLE 30MG DR CAPSULE NG SCH (06:16)
[2021-07-04] MEDS: PILOCARPINE HCL 5MG TABLET PO SCH ×3 (06:16→18:13)
[2021-07-04] MEDS: FERROUS SULFATE 325MG TABLET PO SCH ×3 (06:17→18:13)
[2021-07-04] MEDS: VISCOUS LIDOCAINE 2% 15 ML UDC PO SCH ×3 (06:19→16:40)
[2021-07-04] MEDS: PROMACTA PO SCH (06:19)
[2021-07-04 07:07] LABS: HEMATOCRIT. 30.2 % (36.0-48.0); HEMOGLOBIN. 10.7 g/dL (12.0-16.0); MEAN CORPUSCULAR HEMOGLOBIN 30.1 pg (28.0-32.0); MEAN CORPUSCULAR VOLUME 85.4 fL (81.0-99.0); MEAN PLATELET VOLUME 9.1 fl (7.4-10.4); RED BLOOD CELL COUNT 3.53 mill/uL (4.2-5.4); RED CELL DISTRIBUTION WIDTH 14.1 % (11.6-14.6)
[2021-07-04 07:39] LABS: CHLORIDE 97 mEq/L (98-107)
[2021-07-04 08:01] LABS: PLATELET 9 x1000/uL (130-400)
[2021-07-04] MEDS: ASCORBIC ACID 500 MG TABLET PO SCH ×2 (09:01→21:48)
[2021-07-04] MEDS: DOCUSATE SODIUM 100MG CAPSULE PO SCH ×2 (09:01→18:13)
[2021-07-04] MEDS: INSULIN REGULAR HUMAN (HIGH DOSE) 100 UNITS/ML 3ML VIAL IV SCH ×2 (09:02→21:46)
[2021-07-04] MEDS: PENICILLAMINE 250 MG PO SCH (09:02)
[2021-07-04] MEDS: BISMUTH SUBSALICYLATE 262 MG/15 ML-120ML BOTTLE PO SCH ×3 (09:02→21:00)
[2021-07-04 17:36] LABS: NUCLEATED RED BLOOD CELLS 5 /100 WBC; PLATELET ESTIMATE MARKEDLY DECREASED
[2021-07-04] MEDS: AMLODIPINE 2.5MG TABLET PO SCH (18:13)
[2021-07-04] MEDS: CEFTRIAXONE 1,000 MG in DEXTROSE 5% WATER 50 ML IV SCH (18:14)
[2021-07-04] MEDS: FOLIC ACID 1MG TABLET PO SCH (21:48)
[2021-07-04] MEDS: FILGRASTIM-TBO 300 MCG/0.5 ML SYRINGE SQ SCH (21:48)
[2021-07-04] MEDS ORDERED: INSULIN REGULAR (HUMULIN R) 300UNITS/3ML VIAL IV NR (23:30)
[2021-07-05 04:00] VITALS: BP 109/68
[2021-07-05] MEDS: LANSOPRAZOLE 30MG DR CAPSULE NG SCH (06:09)
[2021-07-05] MEDS: VISCOUS LIDOCAINE 2% 15 ML UDC PO SCH ×3 (06:09→16:40)
[2021-07-05] MEDS: DICYCLOMINE HCL 20MG TABLET PO SCH ×2 (06:10→12:43)
[2021-07-05] MEDS: PROMACTA PO SCH (06:10)
[2021-07-05] MEDS: METHYLPREDNISOLONE SOD SUCC 125 MG/2 ML VIAL IV SCH ×4 (06:10→23:44)
[2021-07-05] MEDS: LEVOTHYROXINE SODIUM 50MCG TABLET PO SCH (06:10)
[2021-07-05 06:32] LABS: HEMATOCRIT. 25.4 % (36.0-48.0)
[2021-07-05 07:07] LABS: MEAN CORPUSCULAR HEMOGLOBIN 29.9 pg (28.0-32.0); MEAN CORPUSCULAR VOLUME 84.1 fL (81.0-99.0); RED BLOOD CELL COUNT 3.02 mill/uL (4.2-5.4); RED CELL DISTRIBUTION WIDTH 14.3 % (11.6-14.6)
[2021-07-05 07:18] LABS: CHLORIDE 96 mEq/L (98-107)
[2021-07-05 08:00] VITALS: BP 112/66
[2021-07-05] MEDS: METHOTREXATE SODIUM 2 . 5MG TABLET PO SCH (08:37)
[2021-07-05] MEDS: FERROUS SULFATE 325MG TABLET PO SCH ×3 (08:40→18:18)
[2021-07-05] MEDS: PILOCARPINE HCL 5MG TABLET PO SCH ×3 (08:40→18:18)
[2021-07-05] MEDS: ASCORBIC ACID 500 MG TABLET PO SCH ×2 (08:41→21:02)
[2021-07-05] MEDS: PENICILLAMINE 250 MG PO SCH (08:41)
[2021-07-05] MEDS: FOLIC ACID 1MG TABLET PO SCH (08:41)
[2021-07-05] MEDS: DOCUSATE SODIUM 100MG CAPSULE PO SCH ×2 (08:41→18:19)
[2021-07-05] MEDS: BISMUTH SUBSALICYLATE 262 MG/15 ML-120ML BOTTLE PO SCH ×4 (08:41→21:02)
[2021-07-05 08:46] LABS: PLATELET 22 x1000/uL (130-400)
[2021-07-05] MEDS: INSULIN REGULAR HUMAN (HIGH DOSE) 100 UNITS/ML 3ML VIAL IV SCH (09:26)
[2021-07-05] MEDS ORDERED: DEXTROSE 50% WATER 50ML SYRINGE IV PRN (10:45)
[2021-07-05] MEDS: BLOOD SUGAR DIAGNOSTIC STRIP TEST SCH ×3 (12:32→22:02)
[2021-07-05] MEDS: INSULIN REGULAR (HUMULIN R) 300UNITS/3ML VIAL IV SCH ×3 (12:44→22:01)
[2021-07-05 16:00] VITALS: BP 110/78
[2021-07-05] MEDS: AMLODIPINE 2.5MG TABLET PO SCH (18:18)
[2021-07-05] MEDS: CEFTRIAXONE 1,000 MG in DEXTROSE 5% WATER 50 ML IV SCH (18:19)
[2021-07-05 19:24] LABS: PLATELET ESTIMATE MARKEDLY DECREASED
[2021-07-05 20:00] VITALS: BP 94/65
[2021-07-05] MEDS: FILGRASTIM-TBO 300 MCG/0.5 ML SYRINGE SQ SCH (21:02)
[2021-07-06] VITALS (9 sets, daily range): BP systolic 100–120; BP diastolic 64–86
[2021-07-06] MEDS ORDERED: INSULIN REGULAR (HUMULIN R) 300UNITS/3ML VIAL IV SCH (02:15)
[2021-07-06] MEDS: METHYLPREDNISOLONE SOD SUCC 125 MG/2 ML VIAL IV SCH (05:29)
[2021-07-06] MEDS: PROMACTA PO SCH (05:59)
[2021-07-06] MEDS: BLOOD SUGAR DIAGNOSTIC STRIP TEST SCH ×3 (06:05→17:18)
[2021-07-06] MEDS: INSULIN REGULAR (HUMULIN R) 300UNITS/3ML VIAL IV SCH ×3 (06:05→17:19)
[2021-07-06 06:28] LABS: CHLORIDE 98 mEq/L (98-107)
[2021-07-06] MEDS: VISCOUS LIDOCAINE 2% 15 ML UDC PO SCH ×4 (06:40→16:40)
[2021-07-06 06:46] LABS: HEMOGLOBIN. 8.5 g/dL (12.0-16.0); MEAN CORPUSCULAR HEMOGLOBIN 29.8 pg (28.0-32.0); MEAN CORPUSCULAR VOLUME 84.2 fL (81.0-99.0); MEAN PLATELET VOLUME 8.9 fl (7.4-10.4); RED BLOOD CELL COUNT 2.85 mill/uL (4.2-5.4); RED CELL DISTRIBUTION WIDTH 14.1 % (11.6-14.6)
[2021-07-06] MEDS: LANSOPRAZOLE 30MG DR CAPSULE NG SCH (06:52)
[2021-07-06] MEDS: FERROUS SULFATE 325MG TABLET PO SCH ×3 (06:52→17:18)
[2021-07-06] MEDS: PILOCARPINE HCL 5MG TABLET PO SCH ×3 (06:52→17:18)
[2021-07-06 07:01] LABS: PLATELET 10 x1000/uL (130-400)
[2021-07-06] MEDS: METHOTREXATE SODIUM 2 . 5MG TABLET PO SCH (09:00)
[2021-07-06] MEDS: PENICILLAMINE 250 MG PO SCH (09:00)
[2021-07-06] MEDS: FOLIC ACID 1MG TABLET PO SCH (10:05)
[2021-07-06] MEDS: DOCUSATE SODIUM 100MG CAPSULE PO SCH ×2 (10:05→17:00)
[2021-07-06] MEDS: ASCORBIC ACID 500 MG TABLET PO SCH ×2 (10:08→21:15)
[2021-07-06] MEDS: BISMUTH SUBSALICYLATE 262 MG/15 ML-120ML BOTTLE PO SCH ×4 (10:08→21:00)
[2021-07-06 12:10] LABS: NUCLEATED RED BLOOD CELLS 6 /100 WBC
[2021-07-06 12:11] LABS: PLATELET ESTIMATE MARKEDLY DECREASED
[2021-07-06] MEDS: METHYLPREDNISOLONE SOD SUCC 40 MG/ML VIAL IV SCH ×3 (12:58→23:44)
[2021-07-06] MEDS ORDERED: NYSTATIN XX SCH (14:00)
[2021-07-06] MEDS: AMLODIPINE 2.5MG TABLET PO SCH (17:00)
[2021-07-06] MEDS: CEFTRIAXONE 1,000 MG in DEXTROSE 5% WATER 50 ML IV SCH (17:12)
[2021-07-06] MEDS: NYSTATIN 100,000 UNITS/ML 5ML UDC SSW SCH ×2 (19:13→21:55)
[2021-07-06] MEDS: FILGRASTIM-TBO 300 MCG/0.5 ML SYRINGE SQ SCH (21:15)
[2021-07-06] MEDS: INSULIN GLARGINE UD 100 UNITS/ML SYR SUBCUT SCH (21:54)
[2021-07-07] VITALS (7 sets, daily range): BP systolic 101–110; BP diastolic 59–72
[2021-07-07] MEDS: BLOOD SUGAR DIAGNOSTIC STRIP TEST SCH ×4 (00:14→18:40)
[2021-07-07] MEDS: INSULIN REGULAR (HUMULIN R) 300UNITS/3ML VIAL IV SCH ×4 (00:15→19:03)
[2021-07-07] MEDS: METHYLPREDNISOLONE SOD SUCC 40 MG/ML VIAL IV SCH ×3 (05:36→18:56)
[2021-07-07] MEDS: NYSTATIN 100,000 UNITS/ML 5ML UDC SSW SCH ×4 (06:07→21:48)
[2021-07-07] MEDS: PROMACTA PO SCH ×2 (06:07→10:13)
[2021-07-07 06:30] LABS: CHLORIDE 100 mEq/L (98-107)
[2021-07-07] MEDS: VISCOUS LIDOCAINE 2% 15 ML UDC PO SCH ×2 (06:40→11:40)
[2021-07-07] MEDS: PILOCARPINE HCL 5MG TABLET PO SCH ×3 (06:50→18:48)
[2021-07-07] MEDS: LANSOPRAZOLE 30MG DR CAPSULE NG SCH (06:50)
[2021-07-07] MEDS: FERROUS SULFATE 325MG TABLET PO SCH ×3 (06:50→18:48)
[2021-07-07 07:41] LABS: HEMATOCRIT. 21.4 % (36.0-48.0); HEMOGLOBIN. 7.6 g/dL (12.0-16.0); MEAN CORPUSCULAR HEMOGLOBIN 29.8 pg (28.0-32.0); MEAN CORPUSCULAR VOLUME 84.4 fL (81.0-99.0); MEAN PLATELET VOLUME 8.1 fl (7.4-10.4); PLATELET 57 x1000/uL (130-400); RED BLOOD CELL COUNT 2.54 mill/uL (4.2-5.4); RED CELL DISTRIBUTION WIDTH 14.2 % (11.6-14.6)
[2021-07-07] MEDS: METHOTREXATE SODIUM 2 . 5MG TABLET PO SCH ×2 (09:00→10:10)
[2021-07-07] MEDS: PENICILLAMINE 250 MG PO SCH ×2 (09:00→17:00)
[2021-07-07 09:16] LABS: PLATELET ESTIMATE DECREASED
[2021-07-07] MEDS: ASCORBIC ACID 500 MG TABLET PO SCH ×2 (10:12→21:39)
[2021-07-07] MEDS: DOCUSATE SODIUM 100MG CAPSULE PO SCH ×2 (10:12→18:48)
[2021-07-07] MEDS: FOLIC ACID 1MG TABLET PO SCH (10:12)
[2021-07-07] MEDS: BISMUTH SUBSALICYLATE 262 MG/15 ML-120ML BOTTLE PO SCH ×4 (10:13→21:00)
[2021-07-07] MEDS: METRONIDAZOLE 250MG TABLET PO SCH ×4 (12:50→21:00)
[2021-07-07] MEDS: POTASSIUM CHLORIDE 20MEQ TABLET SR PO SCH ×2 (12:50→18:48)
[2021-07-07] MEDS ORDERED: LIDOCAINE HCL 20 MG/ML 100ML BOTTLE MM SCH (16:40)
[2021-07-07] MEDS: AMLODIPINE 2.5MG TABLET PO SCH (17:00)
[2021-07-07] MEDS: CEFTRIAXONE 1,000 MG in DEXTROSE 5% WATER 50 ML IV SCH (18:47)
[2021-07-07] MEDS: FILGRASTIM-TBO 300 MCG/0.5 ML SYRINGE SQ SCH (21:39)
[2021-07-07] MEDS: INSULIN GLARGINE UD 100 UNITS/ML SYR SUBCUT SCH (21:40)
[2021-07-08] VITALS: BP 106/67
[2021-07-08] MEDS: INSULIN REGULAR (HUMULIN R) 300UNITS/3ML VIAL IV SCH ×5 (01:51→23:49)
[2021-07-08] MEDS: METHYLPREDNISOLONE SOD SUCC 40 MG/ML VIAL IV SCH ×4 (01:51→17:44)
[2021-07-08 04:00] VITALS: BP 102/63
[2021-07-08] MEDS: PROMACTA PO SCH (05:31)
[2021-07-08] MEDS: BLOOD SUGAR DIAGNOSTIC STRIP TEST SCH ×5 (06:16→23:44)
[2021-07-08 06:19] LABS: CHLORIDE 103 mEq/L (98-107)
[2021-07-08] MEDS: NYSTATIN 100,000 UNITS/ML 5ML UDC SSW SCH ×3 (06:20→17:44)
[2021-07-08 06:26] LABS: HEMATOCRIT. 23.2 % (36.0-48.0); HEMOGLOBIN. 7.9 g/dL (12.0-16.0); MEAN CORPUSCULAR HEMOGLOBIN 29.2 pg (28.0-32.0); MEAN CORPUSCULAR VOLUME 85.8 fL (81.0-99.0); RED CELL DISTRIBUTION WIDTH 14.2 % (11.6-14.6)
[2021-07-08] MEDS: LIDOCAINE HCL 20 MG/ML 100ML BOTTLE PO SCH ×3 (06:40→16:40)
[2021-07-08] MEDS: FERROUS SULFATE 325MG TABLET PO SCH ×3 (07:00→17:43)
[2021-07-08] MEDS: LANSOPRAZOLE 30MG DR CAPSULE NG SCH (07:00)
[2021-07-08] MEDS: PILOCARPINE HCL 5MG TABLET PO SCH ×3 (07:00→17:43)
[2021-07-08 07:50] LABS: PLATELET 29 x1000/uL (130-400)
[2021-07-08 08:00] VITALS: BP 119/79
[2021-07-08] MEDS: PENICILLAMINE 250 MG PO SCH ×2 (09:00→17:00)
[2021-07-08] MEDS: FOLIC ACID 1MG TABLET PO SCH (09:37)
[2021-07-08] MEDS: ASCORBIC ACID 500 MG TABLET PO SCH ×2 (09:37→21:18)
[2021-07-08] MEDS: DOCUSATE SODIUM 100MG CAPSULE PO SCH ×2 (09:37→17:43)
[2021-07-08 12:00] VITALS: BP 105/67
[2021-07-08 13:10] LABS: ANTI-CARDIOLIPIN AB IGA < 9 APL U/mL (0-11); ANTI-CARDIOLIPIN AB IGG < 9 GPL U/mL (0-14); ANTI-CARDIOLIPIN AB IGM 13 MPL U/mL (0-12)
[2021-07-08 16:00] VITALS: BP 99/66
[2021-07-08 20:00] VITALS: BP 106/61
[2021-07-08] MEDS: INSULIN GLARGINE UD 100 UNITS/ML SYR SUBCUT SCH (21:19)
[2021-07-09] VITALS (13 sets, daily range): BP systolic 83–128; BP diastolic 52–92
[2021-07-09] MEDS: METHYLPREDNISOLONE SOD SUCC 40 MG/ML VIAL IV SCH ×2 (00:09→06:00)
[2021-07-09] MEDS: NYSTATIN 100,000 UNITS/ML 5ML UDC SSW SCH ×4 (00:09→18:09)
[2021-07-09] MEDS: INSULIN REGULAR (HUMULIN R) 300UNITS/3ML VIAL IV SCH ×3 (05:22→18:11)
[2021-07-09] MEDS: BLOOD SUGAR DIAGNOSTIC STRIP TEST SCH ×3 (05:22→17:56)
[2021-07-09] MEDS: LIDOCAINE HCL 20 MG/ML 100ML BOTTLE PO SCH ×3 (05:53→16:40)
[2021-07-09] MEDS: PROMACTA PO SCH (05:53)
[2021-07-09] MEDS: LANSOPRAZOLE 30MG DR CAPSULE NG SCH (06:00)
[2021-07-09 06:23] LABS: PLATELET ESTIMATE MARKEDLY DECREASED
[2021-07-09] MEDS: PILOCARPINE HCL 5MG TABLET PO SCH ×3 (08:42→17:10)
[2021-07-09] MEDS: FERROUS SULFATE 325MG TABLET PO SCH ×3 (08:42→17:10)
[2021-07-09] MEDS: FOLIC ACID 1MG TABLET PO SCH (08:42)
[2021-07-09] MEDS: ASCORBIC ACID 500 MG TABLET PO SCH ×2 (08:42→21:32)
[2021-07-09] MEDS: PENICILLAMINE 250 MG PO SCH ×2 (08:57→17:00)
[2021-07-09] MEDS: DOCUSATE SODIUM 100MG CAPSULE PO SCH ×2 (08:57→17:00)
[2021-07-09 09:15] LABS: HEMATOCRIT. 21.7 % (36.0-48.0); HEMOGLOBIN. 7.4 g/dL (12.0-16.0); MEAN CORPUSCULAR HEMOGLOBIN 29.3 pg (28.0-32.0); MEAN CORPUSCULAR VOLUME 86.3 fL (81.0-99.0); MEAN PLATELET VOLUME 8.4 fl (7.4-10.4); RED BLOOD CELL COUNT 2.51 mill/uL (4.2-5.4); RED CELL DISTRIBUTION WIDTH 14.3 % (11.6-14.6)
[2021-07-09 09:36] LABS: PLATELET 14 x1000/uL (130-400)
[2021-07-09 09:37] LABS: CHLORIDE 101 mEq/L (98-107)
[2021-07-09] MEDS: PREDNISONE 20MG TABLET PO SCH ×2 (12:28→18:09)
[2021-07-09 12:56] LABS: NUCLEATED RED BLOOD CELLS 4 /100 WBC; PLATELET ESTIMATE MARKEDLY DECREASED
[2021-07-09] MEDS: SODIUM CHLORIDE 0.9% 1,000 ML IV SCH (14:36)
[2021-07-09 15:57] LABS: MEAN CORPUSCULAR HEMOGLOBIN 29.4 pg (28.0-32.0); MEAN CORPUSCULAR VOLUME 85.6 fL (81.0-99.0); MEAN PLATELET VOLUME 8.8 fl (7.4-10.4); RED CELL DISTRIBUTION WIDTH 14.4 % (11.6-14.6)
[2021-07-09 16:13] LABS: HEMOGLOBIN. 6.5 g/dL (12.0-16.0)
[2021-07-09 16:14] LABS: HEMATOCRIT. 18.9 % (36.0-48.0)
[2021-07-09 16:15] LABS: PLATELET 12 x1000/uL (130-400)
[2021-07-09 20:15] LABS: NUCLEATED RED BLOOD CELLS 2 /100 WBC
[2021-07-09 20:16] LABS: PLATELET ESTIMATE MARKEDLY DECREASED
[2021-07-10] VITALS (17 sets, daily range): BP systolic 97–118; BP diastolic 61–81
[2021-07-10] MEDS: SODIUM CHLORIDE 0.9% 1,000 ML IV SCH ×3 (00:30→20:40)
[2021-07-10] MEDS: NYSTATIN 100,000 UNITS/ML 5ML UDC SSW SCH ×5 (01:40→23:49)
[2021-07-10] MEDS: INSULIN REGULAR (HUMULIN R) 300UNITS/3ML VIAL IV SCH ×5 (02:11→23:49)
[2021-07-10] MEDS: ACETAMINOPHEN 325MG TABLET PO PRN ×2 (03:38→11:48)
[2021-07-10] MEDS: BLOOD SUGAR DIAGNOSTIC STRIP TEST SCH ×5 (05:50→23:59)
[2021-07-10] MEDS: FERROUS SULFATE 325MG TABLET PO SCH ×3 (05:51→17:16)
[2021-07-10] MEDS: PROMACTA PO SCH (05:51)
[2021-07-10] MEDS: LANSOPRAZOLE 30MG DR CAPSULE NG SCH (05:51)
[2021-07-10] MEDS: PILOCARPINE HCL 5MG TABLET PO SCH ×3 (05:51→17:16)
[2021-07-10] MEDS: LIDOCAINE HCL 20 MG/ML 100ML BOTTLE PO SCH ×3 (06:14→15:43)
[2021-07-10 06:49] LABS: CHLORIDE 101 mEq/L (98-107)
[2021-07-10 07:16] LABS: MEAN CORPUSCULAR VOLUME 87.1 fL (81.0-99.0); RED BLOOD CELL COUNT 2.19 mill/uL (4.2-5.4); RED CELL DISTRIBUTION WIDTH 14.9 % (11.6-14.6)
[2021-07-10 08:10] LABS: HEMATOCRIT. 19.1 % (36.0-48.0); HEMOGLOBIN. 6.8 g/dL (12.0-16.0)
[2021-07-10 08:11] LABS: PLATELET 48 x1000/uL (130-400)
[2021-07-10] MEDS: PENICILLAMINE 250 MG PO SCH ×2 (09:00→17:00)
[2021-07-10] MEDS: FOLIC ACID 1MG TABLET PO SCH (09:00)
[2021-07-10] MEDS: PREDNISONE 20MG TABLET PO SCH ×3 (09:00→17:15)
[2021-07-10] MEDS: ASCORBIC ACID 500 MG TABLET PO SCH ×2 (09:00→20:40)
[2021-07-10] MEDS: DOCUSATE SODIUM 100MG CAPSULE PO SCH ×2 (09:00→17:15)
[2021-07-10 12:17] LABS: HEMATOCRIT 24.9 % (36.0-48.0); HEMOGLOBIN 8.7 g/dL (12.0-16.0)
[2021-07-11] VITALS: BP 107/63
[2021-07-11 04:00] VITALS: BP 122/87
[2021-07-11] MEDS: PROMACTA PO SCH (05:50)
[2021-07-11] MEDS: BLOOD SUGAR DIAGNOSTIC STRIP TEST SCH ×4 (06:14→23:34)
[2021-07-11 06:22] LABS: HEMATOCRIT. 22.3 % (36.0-48.0); HEMOGLOBIN. 7.8 g/dL (12.0-16.0); MEAN CORPUSCULAR HEMOGLOBIN 30.3 pg (28.0-32.0); MEAN CORPUSCULAR VOLUME 87.1 fL (81.0-99.0); MEAN PLATELET VOLUME 8.5 fl (7.4-10.4); RED BLOOD CELL COUNT 2.56 mill/uL (4.2-5.4); RED CELL DISTRIBUTION WIDTH 15.5 % (11.6-14.6)
[2021-07-11] MEDS: LIDOCAINE HCL 20 MG/ML 100ML BOTTLE PO SCH ×3 (06:40→16:16)
[2021-07-11 06:50] LABS: PLATELET 25 x1000/uL (130-400)
[2021-07-11] MEDS: INSULIN REGULAR (HUMULIN R) 300UNITS/3ML VIAL IV SCH ×4 (06:58→23:35)
[2021-07-11] MEDS: SODIUM CHLORIDE 0.9% 1,000 ML IV SCH ×2 (06:58→16:16)
[2021-07-11] MEDS: NYSTATIN 100,000 UNITS/ML 5ML UDC SSW SCH ×4 (06:58→23:34)
[2021-07-11] MEDS: FERROUS SULFATE 325MG TABLET PO SCH ×3 (06:58→17:28)
[2021-07-11 07:01] LABS: CHLORIDE 106 mEq/L (98-107)
[2021-07-11 07:23] LABS: PLATELET ESTIMATE MARKEDLY DECREASED
[2021-07-11 08:00] VITALS: BP 129/73
[2021-07-11] MEDS: DOCUSATE SODIUM 100MG CAPSULE PO SCH ×2 (08:28→17:28)
[2021-07-11] MEDS: PREDNISONE 20MG TABLET PO SCH ×3 (08:28→17:28)
[2021-07-11] MEDS: ASCORBIC ACID 500 MG TABLET PO SCH ×2 (08:29→21:29)
[2021-07-11] MEDS: ACETAMINOPHEN 325MG TABLET PO PRN (08:29)
[2021-07-11] MEDS: FOLIC ACID 1MG TABLET PO SCH (08:29)
[2021-07-11] MEDS: PENICILLAMINE 250 MG PO SCH ×2 (08:33→16:17)
[2021-07-11 11:00] LABS: PLATELET ESTIMATE MARKEDLY DECREASED
[2021-07-11 12:00] VITALS: BP 105/65
[2021-07-11] MEDS: PILOCARPINE HCL 5MG TABLET PO SCH ×2 (12:39→17:28)
[2021-07-11 16:00] VITALS: BP 128/94
[2021-07-11] MEDS: CEFEPIME 2,000 MG in DEXT 5% WATER 100 ML IV SCH (17:29)
[2021-07-11 20:00] VITALS: BP 121/70
[2021-07-12] VITALS (8 sets, daily range): BP systolic 110–132; BP diastolic 68–84
[2021-07-12] MEDS: SODIUM CHLORIDE 0.9% 1,000 ML IV SCH ×2 (02:04→11:40)
[2021-07-12] MEDS ORDERED: METHOTREXATE SODIUM 2 . 5MG TABLET PO SCH ×3 (06:00→21:00)
[2021-07-12] MEDS: CEFEPIME 2,000 MG in DEXT 5% WATER 100 ML IV SCH ×2 (06:04→18:32)
[2021-07-12] MEDS: PROMACTA PO SCH (06:05)
[2021-07-12] MEDS: LIDOCAINE HCL 20 MG/ML 100ML BOTTLE PO SCH ×3 (06:05→16:40)
[2021-07-12] MEDS: NYSTATIN 100,000 UNITS/ML 5ML UDC SSW SCH ×3 (06:05→18:33)
[2021-07-12] MEDS: BLOOD SUGAR DIAGNOSTIC STRIP TEST SCH ×3 (06:06→18:00)
[2021-07-12] MEDS: INSULIN REGULAR (HUMULIN R) 300UNITS/3ML VIAL IV SCH ×3 (06:08→18:54)
[2021-07-12] MEDS: FERROUS SULFATE 325MG TABLET PO SCH ×3 (06:10→18:33)
[2021-07-12] MEDS: PILOCARPINE HCL 5MG TABLET PO SCH ×3 (06:10→18:33)
[2021-07-12] MEDS: DOCUSATE SODIUM 100MG CAPSULE PO SCH ×2 (08:58→18:33)
[2021-07-12] MEDS: ASCORBIC ACID 500 MG TABLET PO SCH ×2 (08:58→22:13)
[2021-07-12] MEDS: PREDNISONE 20MG TABLET PO SCH ×3 (08:59→18:33)
[2021-07-12] MEDS: FOLIC ACID 1MG TABLET PO SCH (08:59)
[2021-07-12] MEDS: PENICILLAMINE 250 MG PO SCH ×2 (09:00→17:00)
[2021-07-12 09:52] LABS: HEMATOCRIT. 22.9 % (36.0-48.0); HEMOGLOBIN. 8.1 g/dL (12.0-16.0); MEAN CORPUSCULAR HEMOGLOBIN 30.8 pg (28.0-32.0); MEAN CORPUSCULAR VOLUME 86.9 fL (81.0-99.0); MEAN PLATELET VOLUME 8.6 fl (7.4-10.4); RED BLOOD CELL COUNT 2.64 mill/uL (4.2-5.4); RED CELL DISTRIBUTION WIDTH 15.9 % (11.6-14.6)
[2021-07-12 10:22] LABS: PLATELET 10 x1000/uL (130-400)
[2021-07-12 11:30] LABS: CHLORIDE 105 mEq/L (98-107)
[2021-07-12] MEDS ORDERED: POTASSIUM CHLORIDE 20MEQ/PACKET PO NR (14:45)
[2021-07-12 20:47] LABS: PLATELET ESTIMATE MARKEDLY DECREASED
[2021-07-13] VITALS (21 sets, daily range): BP systolic 106–125; BP diastolic 69–86
[2021-07-13] MEDS: BLOOD SUGAR DIAGNOSTIC STRIP TEST SCH ×4 (00:03→17:53)
[2021-07-13] MEDS: NYSTATIN 100,000 UNITS/ML 5ML UDC SSW SCH ×4 (00:07→17:54)
[2021-07-13] MEDS: INSULIN REGULAR (HUMULIN R) 300UNITS/3ML VIAL IV SCH ×4 (00:09→18:19)
[2021-07-13] MEDS: SODIUM CHLORIDE 0.9% 1,000 ML IV SCH ×3 (00:34→17:57)
[2021-07-13] MEDS: CEFEPIME 2,000 MG in DEXT 5% WATER 100 ML IV SCH ×2 (05:19→20:29)
[2021-07-13] MEDS: PROMACTA PO SCH (06:17)
[2021-07-13] MEDS: LIDOCAINE HCL 20 MG/ML 100ML BOTTLE PO SCH ×3 (06:19→16:40)
[2021-07-13 07:35] LABS: MEAN CORPUSCULAR HEMOGLOBIN 30.3 pg (28.0-32.0); MEAN CORPUSCULAR VOLUME 87.3 fL (81.0-99.0); MEAN PLATELET VOLUME 7.5 fl (7.4-10.4); RED BLOOD CELL COUNT 2.21 mill/uL (4.2-5.4); RED CELL DISTRIBUTION WIDTH 15.9 % (11.6-14.6)
[2021-07-13 07:47] LABS: CHLORIDE 110 mEq/L (98-107)
[2021-07-13 07:50] LABS: HEMATOCRIT. 19.3 % (36.0-48.0); HEMOGLOBIN. 6.7 g/dL (12.0-16.0)
[2021-07-13 07:51] LABS: PLATELET 19 x1000/uL (130-400)
[2021-07-13] MEDS ORDERED: POTASSIUM CHLORIDE 20MEQ/PACKET PO SCH ×2 (08:15→14:00)
[2021-07-13] MEDS: PENICILLAMINE 250 MG PO SCH ×2 (09:00→17:00)
[2021-07-13] MEDS: FOLIC ACID 1MG TABLET PO SCH (09:40)
[2021-07-13] MEDS: PREDNISONE 20MG TABLET PO SCH ×3 (09:40→17:54)
[2021-07-13] MEDS: FERROUS SULFATE 325MG TABLET PO SCH ×3 (09:40→17:54)
[2021-07-13] MEDS: PILOCARPINE HCL 5MG TABLET PO SCH ×3 (09:40→17:54)
[2021-07-13] MEDS: DOCUSATE SODIUM 100MG CAPSULE PO SCH ×2 (09:40→17:54)
[2021-07-13] MEDS: ASCORBIC ACID 500 MG TABLET PO SCH ×2 (09:42→20:29)
[2021-07-13] MEDS ORDERED: CEFEPIME XX SCH (16:00)
[2021-07-13 18:17] LABS: PLATELET ESTIMATE MARKEDLY DECREASED
[2021-07-13] MEDS ORDERED: INSULIN GLARGINE UD 100 UNITS/ML SYR SUBCUT NR (22:00)
[2021-07-13] MEDS ORDERED: MORPHINE SULFATE 2 MG/ML CPJ (NOT FOR IM USE) IV SCH (23:30)
[2021-07-14] VITALS (7 sets, daily range): BP systolic 112–123; BP diastolic 73–80
[2021-07-14] MEDS: INSULIN REGULAR (HUMULIN R) 300UNITS/3ML VIAL IV SCH ×4 (00:01→18:43)
[2021-07-14] MEDS: NYSTATIN 100,000 UNITS/ML 5ML UDC SSW SCH ×4 (00:21→17:34)
[2021-07-14] MEDS: SODIUM CHLORIDE 0.9% 1,000 ML IV SCH ×2 (04:30→14:27)
[2021-07-14] MEDS: BLOOD SUGAR DIAGNOSTIC STRIP TEST SCH ×4 (06:05→17:46)
[2021-07-14] MEDS: LIDOCAINE HCL 20 MG/ML 100ML BOTTLE PO SCH ×3 (06:05→16:40)
[2021-07-14] MEDS: CEFEPIME 2,000 MG in DEXT 5% WATER 100 ML IV SCH ×3 (06:05→21:02)
[2021-07-14] MEDS: FERROUS SULFATE 325MG TABLET PO SCH ×3 (06:38→17:33)
[2021-07-14] MEDS: PILOCARPINE HCL 5MG TABLET PO SCH ×3 (06:38→17:34)
[2021-07-14 07:17] LABS: CHLORIDE 111 mEq/L (98-107)
[2021-07-14 07:21] LABS: HEMATOCRIT. 25.8 % (36.0-48.0); HEMOGLOBIN. 8.9 g/dL (12.0-16.0); MEAN CORPUSCULAR HEMOGLOBIN 30.5 pg (28.0-32.0); MEAN CORPUSCULAR VOLUME 88.7 fL (81.0-99.0); MEAN PLATELET VOLUME 8.6 fl (7.4-10.4); RED BLOOD CELL COUNT 2.91 mill/uL (4.2-5.4); RED CELL DISTRIBUTION WIDTH 15.6 % (11.6-14.6)
[2021-07-14 08:29] LABS: PLATELET 13 x1000/uL (130-400)
[2021-07-14] MEDS: PENICILLAMINE 250 MG PO SCH ×2 (09:00→17:00)
[2021-07-14] MEDS: DOCUSATE SODIUM 100MG CAPSULE PO SCH ×2 (10:01→17:34)
[2021-07-14] MEDS: PREDNISONE 20MG TABLET PO SCH ×3 (10:01→17:34)
[2021-07-14] MEDS: ASCORBIC ACID 500 MG TABLET PO SCH ×2 (10:02→21:00)
[2021-07-14] MEDS: FOLIC ACID 1MG TABLET PO SCH (10:02)
[2021-07-14 12:31] LABS: PLATELET ESTIMATE MARKEDLY DECREASED
[2021-07-14 12:33] LABS: NUCLEATED RED BLOOD CELLS 4 /100 WBC
[2021-07-14] MEDS ORDERED: METHOTREXATE SODIUM/PF 50 MG/2 ML VIAL IM NR (17:00)
[2021-07-14] MEDS ORDERED: INSULIN GLARGINE UD 100 UNITS/ML SYR SUBCUT SCH (22:00)
[2021-07-15] VITALS: BP 124/78
[2021-07-15] MEDS: INSULIN REGULAR (HUMULIN R) 300UNITS/3ML VIAL IV SCH ×2 (00:02→06:42)
[2021-07-15 04:00] VITALS: BP 120/56
[2021-07-15] MEDS: NYSTATIN 100,000 UNITS/ML 5ML UDC SSW SCH ×2 (06:23)
[2021-07-15] MEDS: FERROUS SULFATE 325MG TABLET PO SCH (06:23)
[2021-07-15] MEDS: PILOCARPINE HCL 5MG TABLET PO SCH (06:23)
[2021-07-15] MEDS: BLOOD SUGAR DIAGNOSTIC STRIP TEST SCH ×2 (06:24)
[2021-07-15] MEDS: CEFEPIME 2,000 MG in DEXT 5% WATER 100 ML IV SCH (06:24)
[2021-07-15] MEDS: LIDOCAINE HCL 20 MG/ML 100ML BOTTLE PO SCH (06:40)
[2021-07-15 07:48] VITALS: BP 128/85
== END 2021-07-15 08:45 | disposition short-term general hospital (02) | DRG 813 ==
LOC: ER 12:28 → MICUSO 13:04 → SUPCPDRO 14:29 → 7EST 20:29
PROVIDERS: ADMIT Internal Medicine Rheumatology; ATTEND Internal Medicine Rheumatology
PROC: 30233R1 Transfusion of Nonautologous Platelets into Peripheral Vein, Percutaneous Approach (ICD-10-PCS; principal; 2021-06-07)
PROC: 30233N1 Transfusion of Nonautologous Red Blood Cells into Peripheral Vein, Percutaneous Approach (ICD-10-PCS; 2021-06-22)
PROC: 02HV33Z Insertion of Infusion Device into Superior Vena Cava, Percutaneous Approach (ICD-10-PCS; 2021-06-26)
PROC: B548ZZA Ultrasonography of Superior Vena Cava, Guidance (ICD-10-PCS; 2021-06-26)
PROC: 07DQ3ZZ Extraction of Sternum Bone Marrow, Percutaneous Approach (ICD-10-PCS; 2021-06-29)
PROC: 07DR3ZX Extraction of Iliac Bone Marrow, Percutaneous Approach, Diagnostic (ICD-10-PCS; 2021-07-01)
DX: D69.3 Immune thrombocytopenic purpura (principal); A41.52 Sepsis due to Pseudomonas; D61.818 Other pancytopenia; B37.0 Candidal stomatitis; E46 Unspecified protein-calorie malnutrition; E87.2 Acidosis; K56.7 Ileus, unspecified; N39.0 Urinary tract infection, site not specified; M34.9 Systemic sclerosis, unspecified; I10 Essential (primary) hypertension; I73.00 Raynaud's syndrome without gangrene; I77.6 Arteritis, unspecified; K58.9 Irritable bowel syndrome, unspecified; L98.9 Disorder of the skin and subcutaneous tissue, unspecified; M54.2 Cervicalgia; R58 Hemorrhage, not elsewhere classified; K59.00 Constipation, unspecified; M54.9 Dorsalgia, unspecified; M47.9 Spondylosis, unspecified; D89.89 Other specified disorders involving the immune mechanism, not elsewhere classified; K21.9 Gastro-esophageal reflux disease without esophagitis; B95.1 Streptococcus, group B, as the cause of diseases classified elsewhere; E87.6 Hypokalemia; K22.4 Dyskinesia of esophagus; K76.0 Fatty (change of) liver, not elsewhere classified; M32.9 Systemic lupus erythematosus, unspecified; M35.00 Sjogren syndrome, unspecified; M48.061 Spinal stenosis, lumbar region without neurogenic claudication; M51.27 Other intervertebral disc displacement, lumbosacral region; R04.0 Epistaxis; R13.14 Dysphagia, pharyngoesophageal phase; R50.81 Fever presenting with conditions classified elsewhere; Z20.822 Contact with and (suspected) exposure to COVID-19; T38.0X5A Adverse effect of glucocorticoids and synthetic analogues, initial encounter; Z80.0 Family history of malignant neoplasm of digestive organs; Z82.49 Family history of ischemic heart disease and other diseases of the circulatory system; Z83.3 Family history of diabetes mellitus; Z90.710 Acquired absence of both cervix and uterus; Z88.1 Allergy status to other antibiotic agents; Z88.2 Allergy status to sulfonamides; Z87.11 Personal history of peptic ulcer disease; Y92.89 Other specified places as the place of occurrence of the external cause; Z91.19 Patient's noncompliance with other medical treatment and regimen
CPT/HCPCS: 36415; 36430; 38220; 38221; 71045; 71275; 72148; 74177; 76700; 76937; 80048; 80053; 80202; 80305; 80307; 81003; 82085; 82550; 82607; 82962; 82977; 83010; 83516; 83520; 83540; 83550; 83615; 83735; 84439; 84484; 84550; 85014; 85018; 85025; 85044; 85049; 85060; 85097; 85384; 85651; 86022; 86147; 86160; 86162; 86235; 86256; 86677; 86705; 86709; 86803; 86850; 86880; 86900; 86920; 86945; 87077; 87186; 87340; 87426; 88305; 88311; 88313; 93005; 93306; 97162; 99291; C1725; C1893; J0692; J0696; J1100; J1442; J1459; J1815; J2060; J2250; J2270; J2405; J2704; J2920; J2930; J3010; J3370; J3480; J3490; J7030; J7040; J7042; J7060; J7512; J8610; J9260; P9016; P9021; P9034; Q9963; Q9967; P9035; P9036